=== PATIENT | male | born 1965 | race Caucasian/White ===

== ENCOUNTER 2017-02-18 07:01 | Day surgery (SDC) | payer MEDICAID, OTHER ==
[2017-02-17 08:55] VITALS: BMI 31.0
[~2017-02-18 07:01] MED LIST: LACTATED RINGERS 1,000 ML IV SCH
[2017-02-18 07:15] VITALS: TEMP 98
[2017-02-18] MEDS ORDERED: LACTATED RINGERS 1,000 ML IV ONE (07:19)
[2017-02-18] MEDS ORDERED: PROPOFOL 10 MG/ML 20 ML VIAL IV ONE (07:35)
--- NOTE | 2017-02-18 07:53 | P.OP ---
Date of Procedure: 02/18/17 Preoperative Diagnosis: Dysphagia Postoperative Diagnosis: Reflux esophagitis with hill grade 2 hiatal hernia Gastritis Duodenitis Procedure(s) Performed: EGD with biospy Anesthesia: VANCE Surgeon: Jenny Paul Pathology: other Condition: stable Disposition: PACU Operative Findings: REfl;ux esophagitis with barretts? Hill damien 2 hiatal hernia GE junciton at 40 cm Gastritis Duodenitis Description of Procedure: 1. ESOPHAGOGASTRODUODENOSCOPY 2. BIOPSY USING COLD BIOPSY FORCEPS I A timeout was performed to verify the correct patient and correct procedure. Patient was on continuous vitals and pulse ox monitoring throughout the procedure. She was placed in lateral decubitus position and a bite block was inserted. A well-lubricated endoscope was passed orally. The esophagus was intubated without difficulty. The EGD was passed beyond the pylorus into the first and second portion of the duodenum. No normality is noted in the Biopsies were taken from the [antrum] using cold biopsy forceps. The scope was retroflexed. [Small hiatal was noted which is Hill Damien II]. No mass, ulcer or bleeding noted within the gastric lumen. The GE junction is measured at [38 ] cm from the incisors . The endoscope was gradually withdrawn. Patient tolerated the procedure well and was taken to post anesthesia care unit in stable condition. FINAL DIAGNOSIS: 1. Hill Grade II Hiatal hernia 2. Gastro esophageal reflux disease with reflux esophagitis 3- Antral gastritis (biospied for H pylori 4- Duofentitis 5- Tertiary esopageal contractions.
[2017-02-18 08:09] VITALS: RESP 18
[2017-02-18 08:19] VITALS: BP 134/82; PULSE 84
== END 2017-02-18 08:40 | disposition home or self-care (01) ==
LOC: ORWHC2ENDO 07:01
PROVIDERS: ATTEND Surgery
DX: K21.0 Gastro-esophageal reflux disease with esophagitis (principal); K20.0 Eosinophilic esophagitis; K29.50 Unspecified chronic gastritis without bleeding; K22.8 Other specified diseases of esophagus; K44.9 Diaphragmatic hernia without obstruction or gangrene; K29.80 Duodenitis without bleeding; Z79.899 Other long term (current) drug therapy
CPT/HCPCS: 88305; 88342; 43239; J2704; 74220

== ENCOUNTER → 2017-02-18 | Outpatient (CLI) | payer MEDICAID ==
--- NOTE | 2017-02-18 11:47 | FL ---
Barium swallow HISTORY: Dysphagia Patient was given high density barium to drink. 8 seconds fluoroscopy time. 43 intraoperative C-arm i mages document the procedure The swallowing mechanism is normal. No extrinsic or intrinsic esophageal lesion. No obstruction to fl ow. There is no evidence of hiatal hernia or gastroesophageal reflux. IMPRESSION: No significant abnormalities evident
== END | disposition home or self-care (01) ==
LOC: RADFLWHC 10:56
PROVIDERS: ATTEND Surgery
DX: R13.10 Dysphagia, unspecified (principal)
CPT/HCPCS: 74220

== ENCOUNTER → 2017-03-24 | Day surgery (SDC) | payer MEDICAID ==
[2017-03-22 15:40] VITALS: BMI 30.1
[2017-03-24 12:43] VITALS: BP 135/84; PULSE 83; RESP 16; TEMP 97.7
--- NOTE | 2017-04-10 07:39 | PCN ---
DATE OF PROCEDURE: 03/24/2017 PROCEDURE PERFORMED: Esophageal manometry. PREOPERATIVE DIAGNOSES: Gastroesophageal reflux disease and dysphagia. DESCRIPTION OF PROCEDURE: After informed consent was obtained, the patient was brought in to the endoscopy unit. The procedure was performed by endoscopy nurse. The esophageal manometry catheter was passed in the external nostril, was gently advanced into the stomach. Initially gastric baseline was achieved and the study was performed using stationery pull thru technique. The following are the studies results: 1. Lower esophageal sphincter data: Proximal location 41 cm, distal location 44 cm, total lower esophageal sphincter length is 3 cm. Mean lower esophageal sphincter pressures are 31 mmHg. 2. Esophageal body: Peristaltic contractions 100%, mean amplitude of the contractions, 78 mmHg. No evidence of simultaneous, spontaneous or retrograde contractions. 3. Upper esophageal sphincter: Normal. 4. Complete bolus transit time with viscous solution was 100%. INTERPRETATION: The above esophageal manometry study shows normal lower esophageal sphincter pressures with good relaxation with wet swallows. The motility pattern involving the esophageal body is within normal limits. There is no evidence of esophageal dysmotility. MTDD
--- NOTE | 2017-04-10 07:53 | PCN ---
DATE OF PROCEDURE: 03/24/2017 Requesting physician: Dr. Ranjit Whitaker. PROCEDURE PERFORMED: A 24-hour esophageal pH study. PROCEDURE: After informed consent was obtained from the patient, she was brought into the endoscopy. The pH probe was passed from the ( ) muscle after adequate calibration and was passed into the distal esophagus and the study was performed for total of 24 hours and 3 minutes. Following are the study results: 1. Acid exposure: Upright refluxes 2.5%, recumbent refluxes 3.1%, total refluxes 2.8% (normal less than 4.5%). ( ) score is 11.7 (normal is less than 14.7). 2. Reflux episode activity: Acid reflux 48, nonacid reflux 14. Total reflux episode 62 (normal less than 85). 3. Symptom index is 0%. INTERPRETATION: The above esophageal pH study does not show any evidence of significant pathological acid reflux both in the proximal or in the distal esophagus. MTDD
== END ==
LOC: ORWHC2ENDO 12:13
PROVIDERS: ATTEND Internal Medicine Gastroenterology
DX: K21.9 Gastro-esophageal reflux disease without esophagitis (principal); R13.10 Dysphagia, unspecified
CPT/HCPCS: 91010; 91038

== ENCOUNTER → 2017-10-13 | Outpatient (CLI) | payer MEDICAID ==
--- NOTE | 2017-10-13 12:15 | FL ---
EXAMINATION TYPE: FL barium swallow w video DATE OF EXAM: 10/13/2017 COMPARISON: Esophagram 02/18/2017 HISTORY: Food sticking upper esophagus TECHNIQUE: Fluoroscopy. FINDINGS: Fluoroscopic guidance was provided for the procedure performed in conjunction with the [facility] pathology department. Please see complete report forthcoming from the Speech Pathology departmen t. Various consistencies from thin liquid to solids were administered. Fluoroscopy time 1 minute 30 seconds Number of images: 1 No aspiration or penetration was evident. No significant pooling was observed in the vallecula. There was normal propulsion of the bolus through the proximal cricopharyngeus muscle. There is howeve r noted to be buildup of debris within the mid to distal esophagus. With dry swallowing this does not clear. This does partially empty with thin liquid swallowing. IMPRESSION: 1. Build up of debris within the esophagus during the solids portion of the study. This partially home ars with thin liquids. Consider presbyesophagus within the differential. 2. No aspiration or penetration evident during this exam.
== END | disposition home or self-care (01) ==
LOC: RADFLMAIN 10:58
PROVIDERS: ATTEND Otolaryngology
DX: R93.3 Abnormal findings on diagnostic imaging of other parts of digestive tract (principal); R13.10 Dysphagia, unspecified
CPT/HCPCS: 74230

== ENCOUNTER 2018-01-25 11:54 | Day surgery (SDC) | payer MEDICAID ==
[2018-01-24 10:00] VITALS: BMI 30.1
[~2018-01-25 11:54] MED LIST changes: -LACTATED RINGERS 1,000 ML IV SCH; +LIDOCAINE 1% 20 ML VIAL (10MG/ML) FOR IV START INTRADERMA PRN; +MIDAZOLAM 2 MG/2 ML VIAL IV PRN; +fentaNYL (PF) 50 MCG/ML 2 ML AMP IV PRN
[2018-01-25] MEDS: LACTATED RINGERS 1,000 ML IV SCH ×2 (13:06→14:19)
[2018-01-25 13:10] VITALS: RESP 16; TEMP 98.5
[2018-01-25] MEDS ORDERED: PROPOFOL 10 MG/ML 20 ML VIAL IV ONE (14:19)
--- NOTE | 2018-01-25 14:55 | P.PCN ---
Date of Procedure: 01/25/18 Procedure(s) Performed: Procedure: Esophagogastroduodenoscopy and biopsy. Preoperative diagnosis: Dysphagia and abnormal esophagogram. Postoperative diagnosis: 1. Small sliding hiatal hernia with low-grade distal esophagitis. 2. Mild gastritis and duodenitis. 3. Multiple biopsies obtained from the antrum and esophagus. Preparation and sedation: Was provided by anesthesia. Brief clinical history: The patient is a 52-year-old male who was been troubled with difficulty swallowing for the last 2 years or so. He had evaluation in the past including an upper endoscopy that showed some degree of esophagitis and a barium swallow which was normal in February of last year as well as a motility study which did not reveal any significant abnormalities. The patient has been having persistent symptoms with episodes of obstructive dysphagia couple times a week, at times requiring him making the effort of bringing the food back up. A barium study recently performed showed dysmotility raising the possibility of presbyesophagus. The patient has been on acid suppressive therapy since his upper endoscopy with biopsies last February because of findings of reflux esophagitis. I scheduled this evaluation to reassess for possible eosinophilic esophagitis, esophageal stricture or other pathology. Procedure: With the patient on his left lateral decubitus position and after informed consent and adequate sedation, I passed the Olympus-GIF 160 video upper endoscope through the cricopharyngeus down the esophagus. GE junction was around 41 cm from the incisors and there was a small sliding hiatal hernia. The esophagus showed mild corrugations and there was a short erosion distally terminating at the level of the GE junction but no ulcers or obvious strictures. The endoscope was then passed into the stomach which was insufflated with air and inspected in detail including the retroflex view in the cardia. There was some mottling and erythema in the antrum but no ulcers or erosions. Pyloric channel did not show any ulcers. Duodenal bulb showed patches of erythema and couple healing erosions but no ulcers or bleeding. Post bulbar area and descending duodenum appeared normal. I obtained biopsies from the antrum and esophagus then the endoscope was withdrawn. The patient tolerated the procedure well. Plan: The patient was reassured. Will await biopsy results. I will see him in follow-up in the office and make additional recommendations. I will keep you updated on his progress.
[2018-01-25 14:59] VITALS: BP 126/85; PULSE 76
== END 2018-01-25 15:35 | disposition home or self-care (01) ==
LOC: ORWHC2ENDO 11:54
DX: K20.0 Eosinophilic esophagitis (principal); K29.50 Unspecified chronic gastritis without bleeding; K44.9 Diaphragmatic hernia without obstruction or gangrene; K29.80 Duodenitis without bleeding; Z87.891 Personal history of nicotine dependence; K21.9 Gastro-esophageal reflux disease without esophagitis; K04.7 Periapical abscess without sinus; Z79.2 Long term (current) use of antibiotics; Z79.1 Long term (current) use of non-steroidal anti-inflammatories (NSAID); Z79.899 Other long term (current) drug therapy
CPT/HCPCS: 88305; 43239; J2704

== ENCOUNTER → 2018-06-27 | Outpatient (CLI) | payer MEDICAID ==
--- NOTE | 2018-06-27 14:15 | EST ---
EXERCISE STRESS AGE: 52 SEX: M HT: 5'10" WT: 208 PROTOCOL: Andriy Stress Test STAGE: I DURATION OF EXERCISE: 5:15 HEART RATE REST: 90 BLOOD PRESSURE REST: 153/86 MAXIMUM HEART RATE ACHIEVED: 143 MAXIMUM BLOOD PRESSURE: 211/74 85% MPHR: 141 100% MPHR: 166 METS: 7.1 INDICATIONS: Family history. CLINICAL INFORMATION: Patient was exercised for a total period of 5 minutes, peak heart rate of 143 was achieved. Maximum blood pressure of 211/74 mmHg was noted. Resting EKG shows normal sinus rhythm with normal DC interval and QRS duration and normal ST-T waves. No ST- segment depression suggestive of ischemia is noted. Patient did not complain of any chest pain during the test. FINAL IMPRESSION: 1. This exercise test is not suggestive of ischemia. 2. Patient's exercise tolerance is normal. 3. No dysrhythmias are noted. MMODL / IJN: [id number] /
== END | disposition home or self-care (01) ==
LOC: RADNMMAIN 10:32
PROVIDERS: ATTEND Family Medicine
DX: Z13.6 Encounter for screening for cardiovascular disorders (principal)
CPT/HCPCS: 93017

== ENCOUNTER → 2019-04-11 | Outpatient (CLI) | payer MEDICAID ==
[2019-04-12 00:16] LABS: Peanut IgE <0.10 kU/L; Soybean IgE <0.10 kU/L
[2019-04-12 00:17] LABS: Walnut IgE (Food) <0.10 kU/L
[2019-04-12 13:53] LABS: Lettuce IgE Class CLASS 0
[2019-04-12 13:54] LABS: Pork IgE Class CLASS 0
[2019-04-12 13:55] LABS: Beef IgE <0.35 kU/L (<0.35); Beef IgE Class CLASS 0
[2019-04-12 13:56] LABS: Onion IgE <0.35 kU/L (<0.35); Onion IgE Class CLASS 0
[2019-04-12 13:57] LABS: Chicken IgE Class CLASS 0; Gluten IgE Class CLASS II; Latex IgE Class CLASS 0
[2019-04-12 13:58] LABS: Avocado Class CLASS 0; Banana IgE Class CLASS 0; Cow's Milk IgE Class CLASS 0; Egg White IgE <0.35 kU/L (<0.35); Hazelnut IgE <0.35 kU/L (<0.35); Hazelnut IgE Class CLASS 0; Kiwi IgE <0.35 kU/L (<0.35); Peanut IgE <0.35 kU/L (<0.35); Potato IgE <0.35 kU/L (<0.35); Potato IgE Class CLASS 0; Soybean IgE <0.35 kU/L (<0.35)
== END | disposition home or self-care (01) ==
LOC: LABWHC1 06:36
PROVIDERS: ATTEND Otolaryngology
DX: J30.89 Other allergic rhinitis (principal)
CPT/HCPCS: 36415; 80061; 86003

== ENCOUNTER 2019-11-01 14:05 | Emergency (ER) | payer MEDICAID ==
[2019-11-01 14:21] VITALS: TEMP 97.6
[2019-11-01] MEDS ORDERED: SODIUM CHLORIDE 0.9% 1,000 ML IV STA (14:33)
[2019-11-01] MEDS ORDERED: MORPHINE SULFATE 4 MG/ML SYRINGE IV STA (14:33)
[2019-11-01] MEDS ORDERED: ONDANSETRON 4 MG/2 ML VIAL IVP STA (14:33)
[2019-11-01 15:08] LABS: Basophils # (A) 0.2 k/uL (0-0.2); Basophils % (A) 2 %; Eosinophils # (A) 0.1 k/uL (0-0.7); Eosinophils % (A) 1 %; HCT 46.6 % (39.0-53.0); Lymphocytes # (A) 0.7 k/uL (1.0-4.8); Lymphocytes % (A) 8 %; MCH 30.9 pg (25.0-35.0); MCHC 34.5 g/dL (31.0-37.0); MCV 89.7 fL (80.0-100.0); Mean Platelet Volume 7.5; Monocytes # (A) 0.8 k/uL (0-1.0); Monocytes % (A) 8 %; Neutrophils # (A) 7.7 k/uL (1.3-7.7); Neutrophils % (A) 80 %; Platelet Count 326 k/uL (150-450); RBC 5.19 m/uL (4.30-5.90); RDW 12.3 % (11.5-15.5); WBC 9.7 k/uL (3.8-10.6)
--- NOTE | 2019-11-01 15:19 | XR ---
EXAMINATION TYPE: XR KUB DATE OF EXAM: 11/01/2019 3:12 PM CLINICAL HISTORY: Generalized abdominal pain for 2 days. TECHNIQUE: Two Upright KUB images of the abdomen are obtained. COMPARISON: None. FINDINGS: Small mottled gas with air-fluid level in the stomach epigastric region. Scattered gas is s een in non-distended small bowel loops. Scattered air fluid levels is nonspecific finding. Gas and fe deisy material is seen in non-distended colon. Scattered air fluid levels right and transverse colon is also a nonspecific finding. Gas likely present in rectum overlying pubic symphysis. There is no visc eromegaly, pneumoperitoneum, or abnormal calcification appreciated. The lung bases are clear and the osseous structures are intact. IMPRESSION: Overall nonspecific but still favor nonobstructive bowel gas pattern. Enterocolitis should be conside red given presence of scattered air-fluid levels without suspicious bowel dilatation.
[2019-11-01 15:47] LABS: ALT 34 U/L (4-49); AST 34 U/L (17-59); African American GFR (CKD) >90 (>60 ml/min/1.73 sqM); Albumin 3.7 g/dL (3.5-5.0); Alkaline Phosphatase 72 U/L (38-126); Blood Urea Nitrogen 35 mg/dL (9-20); Calcium 8.3 mg/dL (8.4-10.2); Carbon Dioxide 25 mmol/L (22-30); Chloride 103 mmol/L (98-107); Glucose 140 mg/dL (74-99); Non-African American GFR(CKD) 88 (>60 ml/min/1.73 sqM); Total Protein 6.3 g/dL (6.3-8.2)
[2019-11-01 15:59] LABS: Anion Gap 9 mmol/L; Potassium 4.3 mmol/L (3.5-5.1); Sodium 137 mmol/L (137-145)
--- NOTE | 2019-11-01 17:21 | ED ---
General Adult HPI - General Chief complaint: Abdominal Pain Stated complaint: stomach pain Time Seen by Provider: 11/01/19 14:26 Source: patient, RN notes reviewed, old records reviewed Mode of arrival: ambulatory Limitations: no limitations - History of Present Illness Initial comments: 54 yo female presenting for evaluation of abdominal pain and nausea vomiting diarrhea. Patient is otherwise healthy with no chronic medical conditions. His been sick for approximately 36 hours. Initially began as vomiting, greater than 10 episodes. Nonbloody nonbilious. It has progressed to diarrhea over the past 6 hours. No blood in the diarrhea. He has a periumbilical crampy abdominal pain which is been present throughout. No fever or chills. No upper respiratory symptoms. No chest pain or dyspnea. His daughter had similar gastrointestinal illness 4 days prior which has resolved. - Related Data Home Medications Medication Instructions Recorded Confirmed Omeprazole [PriLOSEC] 40 mg PO DAILY 11/01/19 11/01/19 Previous Rx's Medication Instructions Recorded Acetaminophen-Codeine 300-30mg 1 tab PO Q6H PRN 3 Days #12 tablet 11/01/19 [Tylenol w/codeine #3] Allergies Allergy/AdvReac Type Severity Reaction Status Date / Time No Known Allergies Allergy Verified 11/01/19 14:45 Review of Systems ROS Statement: Those systems with pertinent positive or pertinent negative responses have been documented in the HPI. ROS Other: All systems not noted in ROS Statement are negative. Past Medical History Past Medical History: GERD/Reflux Additional Past Medical History / Comment(s): FEELS LIKE FOOD GETS STUCK IN THROAT History of Any Multi-Drug Resistant Organisms: None Reported Past Surgical History: Adenoidectomy, Tonsillectomy Additional Past Surgical History / Comment(s): EGD 02/17/17 Past Anesthesia/Blood Transfusion Reactions: No Reported Reaction Past Psychological History: No Psychological Hx Reported Smoking Status: Former smoker Past Alcohol Use History: None Reported Past Drug Use History: None Reported - Past Family History Father Family Medical History: Cancer Mother Family Medical History: Cancer Sister(s) Family Medical History: Cancer General Exam Limitations: no limitations General appearance: alert, in no apparent distress Head exam: Present: atraumatic, normocephalic Eye exam: Present: normal appearance, PERRL ENT exam: Present: mucous membranes dry Neck exam: Present: normal inspection. Absent: tenderness, meningismus Respiratory exam: Present: normal lung sounds bilaterally. Absent: respiratory distress, wheezes Cardiovascular Exam: Present: normal rhythm, tachycardia GI/Abdominal exam: Present: soft, normal bowel sounds. Absent: distended, tenderness, guarding, rebound Extremities exam: Present: normal inspection, normal capillary refill. Absent: pedal edema, calf tenderness Neurological exam: Present: alert, oriented X3, CN II-XII intact. Absent: motor sensory deficit Psychiatric exam: Present: normal affect, normal mood Skin exam: Present: warm, dry, intact. Absent: cyanosis, diaphoretic Course Vital Signs 11/01/19 14:19 Temperature 97.6 F Pulse Rate 115 H Respiratory 18 Rate Blood Pressure 123/83 O2 Sat by Pulse 96 Oximetry - Reevaluation(s) Reevaluation #1: 11/01/19 18:11 Patient reevaluated several times, resting comfortably, no further nausea, vomiting or diarrhea. Abdomen reassessed, soft nontender nondistended. Stable vitals. Medical Decision Making - Medical Decision Making 54-year-old male presenting with crampy abdominal pain, nausea vomiting and diarrhea. Similar symptoms in his daughter several days prior. Patient's well- appearing, mildly tachycardic on exam. Abdomen is soft no tenderness to palpation. He has a normal CBC, normal electrolytes with a slightly elevated BUN to creatinine ratio suggestive of some dehydration. X-rays performed which is negative for obstruction or intraperitoneal free air, does show air-fluid levels consistent with enteritis. He is observed in the emergency department for several hours, no further vomiting, no diarrhea. Pain control. Vital stable. Eager for discharge. He will maintain oral hydration at home, he has had a by mouth challenge in the emergency department without vomiting. - Lab Data Result diagrams: 11/01/19 14:34 11/01/19 14:34 Lab Results 11/01/19 11/01/19 11/01/19 Range/Units 14:34 14:34 14:34 WBC 9.7 (3.8-10.6) k/uL RBC 5.19 (4.30-5.90) m/uL Hgb 16.0 (13.0-17.5) gm/dL Hct 46.6 (39.0-53.0) % MCV 89.7 (80.0-100.0) fL MCH 30.9 (25.0-35.0) pg MCHC 34.5 (31.0-37.0) g/dL RDW 12.3 (11.5-15.5) % Plt Count 326 (150-450) k/uL Neutrophils % 80 % Lymphocytes % 8 % Monocytes % 8 % Eosinophils % 1 % Basophils % 2 % Neutrophils # 7.7 (1.3-7.7) k/uL Lymphocytes # 0.7 L (1.0-4.8) k/uL Monocytes # 0.8 (0-1.0) k/uL Eosinophils # 0.1 (0-0.7) k/uL Basophils # 0.2 (0-0.2) k/uL Sodium 137 (137-145) mmol/L Potassium 4.3 (3.5-5.1) mmol/L Chloride 103 (98-107) mmol/L Carbon Dioxide 25 (22-30) mmol/L Anion Gap 9 mmol/L BUN 35 H (9-20) mg/dL Creatinine 0.97 (0.66-1.25) mg/dL Est GFR (CKD-EPI)AfAm >90 (>60 ml/min/1.73 sqM) Est GFR (CKD-EPI)NonAf 88 (>60 ml/min/1.73 sqM) Glucose 140 H (74-99) mg/dL Plasma Lactic Acid Aristides 1.1 (0.7-2.0) mmol/L Calcium 8.3 L (8.4-10.2) mg/dL Total Bilirubin 1.0 (0.2-1.3) mg/dL AST 34 (17-59) U/L ALT 34 (4-49) U/L Alkaline Phosphatase 72 (38-126) U/L Total Protein 6.3 (6.3-8.2) g/dL Albumin 3.7 (3.5-5.0) g/dL Lipase 72 (23-300) U/L Disposition Clinical Impression: Abdominal pain, Nausea vomiting and diarrhea Disposition: HOME SELF-CARE Condition: Good Instructions (If sedation given, give patient instructions): Abdominal Pain (ED), Acute Nausea and Vomiting (ED), Acute Diarrhea (ED) Prescriptions: Acetaminophen-Codeine 300-30mg [Tylenol w/codeine #3] 1 tab PO Q6H PRN 3 Days #12 tablet PRN Reason: Pain Is patient prescribed a controlled substance at d/c from ED?: No Referrals: Thad Whitaker MD [Primary Care Provider] - 1-2 days Time of Disposition: 18:15
[2019-11-01 18:29] LABS: Appearance,Urine Clear (Clear); Bilirubin,Urine Negative (Negative); Blood,Urine Negative (Negative); Color,Urine Yellow; Glucose,Urine (UA) Negative (Negative); Ketones,Urine 1+ (Negative); Leukocyte Esterase,Urine Negative (Negative); Nitrite,Urine Negative (Negative); PH, Urine 5.5 (5.0-8.0); Protein,Urine Negative (Negative); Specific Gravity,Urine 1.027 (1.001-1.035)
[2019-11-01 18:53] VITALS: BP 139/78; PULSE 76; RESP 16
== END 2019-11-01 18:48 | disposition home or self-care (01) ==
LOC: EC 14:05
DX: R10.9 Unspecified abdominal pain (principal); R11.2 Nausea with vomiting, unspecified; R19.7 Diarrhea, unspecified; R00.0 Tachycardia, unspecified; K21.9 Gastro-esophageal reflux disease without esophagitis; Z79.899 Other long term (current) drug therapy; Z87.891 Personal history of nicotine dependence
CPT/HCPCS: 36415; 80053; 83605; 83690; 85025; 81003; 74018; 99284; 96374; 96375; 96361 ×4; J2270; J2405

== ENCOUNTER → 2020-12-09 | Outpatient (CLI) | payer OTHER ==
--- NOTE | 2020-12-09 07:46 | MR ---
EXAMINATION TYPE: MR shoulder RT wo con DATE OF EXAM: 12/09/2020 COMPARISON: None HISTORY: Rt shoulder pain TECHNIQUE: Multiplanar, multisequence imaging of the right shoulder is performed without contrast. FINDINGS: Rotator Cuff: Postsurgical changes from prior rotator cuff tear are evident. The supraspinatus muscle appears somewhat atrophic. Significant fatty gestation is not evident. Within the distal portion of the supraspinatus tendon there is signal abnormality crossing the tendon compatible with a perforatio n. Series 401 image 16. Additional area of signal abnormality within the supraspinatus tendon is belo w the acromion tip, series 601 image 18. Minimal fluid is in the subacromial bursa. Findings are comp atible with small perforations. Acromioclavicular Joint: Hypertrophy. There is some downward spurring which can contribute to impinge ment syndrome. Glenohumeral Joint: Humeral head articular glenoid. Mild narrowing of the articular cartilage may be present. Labrum: The labrum appears grossly intact given limitation of non-arthrogram study. Biceps Tendon: The long head of biceps is in normal location within bicipital groove. Bone marrow signal: No focal abnormal marrow signal is appreciated. Other: No additional significant abnormality is appreciated. IMPRESSION: 1. Suggestion of a couple of small perforations within the supraspinatus tendon minimal fluid in suba cromial bursa. No complete tear with retraction is evident. 2. Mild osteoarthritic degenerative change right shoulder
== END ==
LOC: RADMRIMAIN 06:05
PROVIDERS: ATTEND Orthopaedic Surgery
DX: M25.511 Pain in right shoulder (principal)

== ENCOUNTER 2021-01-03 03:19 | Observation (INO) | payer MEDICAID ==
[2021-01-03] MEDS ORDERED: HYDROmorphone 0.5 MG/0.5 ML SYRINGE IVP STA (07:18)
--- NOTE | 2021-01-03 07:35 | CT ---
EXAMINATION TYPE: CT angio chest DATE OF EXAM: 01/03/2021 7:21 AM COMPARISON: None HISTORY: Chest pain CT DLP: 472.5 mGycm Automated exposure control for dose reduction was used. CONTRAST: CTA scan of the thorax is performed with IV Contrast, patient injected with 100 mL of Isovue 370, pul monary embolism protocol. . FINDINGS: LUNGS: Subsegmental changes are seen involving the posterior lung bases most typical of atelectasis n o pneumothorax or pleural effusion. Biapical pleural thickening. 6 mm subpleural nodule superior segm ent left upper lobe and 3 mm nodule superior segment subpleural right lower lobe. Additional subpleur al nodularity seen posteriorly within the superior segment left upper lobe. No evidence seen to sugge st failure. MEDIASTINUM: Artifact limits assessment proximally. No sizable central pulmonary embolus seen. Questi onable filling defect within the left upper lobe branch may be artifactual. Correlate clinically. Rem aining visualized structures enhance normally. Aorta of normal caliber. Heart size OTHER: Hypertrophic and degenerative change of the spine. IMPRESSION: 1. No central pulmonary embolus. There is a density seen with a left upper lobe pulmonary arterial br anch which could be artifactual. Small pulmonary embolism difficult to exclude correlate clinically a nd with VQ scan as clinically warranted. 2. Multiple subpleural nodules could be postinflammatory. Six-month follow-up CT chest recommended.
[2021-01-03] MEDS ORDERED: NITROGLYCERIN SL TABS 0.4 MG TAB SUBLINGUAL PRN (08:10)
[2021-01-03] MEDS ORDERED: SODIUM CHLORIDE 0.9% 500 ML 500 ML IV ONE (08:12)
--- NOTE | 2021-01-03 08:13 | ED ---
Chest Pain HPI - History of Present Illness Initial Comments: 55-year-old male presenting to the emergency department today for chief complaint of epigastric pain ongoing since 3:30 this morning. Patient presents emergency department and was initially evaluated by my colleague Thuy Clark, she completed a majority of the workup for chest pain. Patient had normal troponins. Despite nitroglycerin x 3 and morphine 8mg pt was in significant pain. Thus CTA ordered. No dissection oand there is an artifact in the upper left lobe. Patient has no pleuritic chest pain, nor risk factors for PE. He is tachycardic but this is felt to be likely secondary to pain. Patient has reproducible tenderness with abdominal guarding upon palpation of the epigastric region of the abdomen. I suspect a more abdominal source. Will trend lipase, troponins. Patient will be hydrated. Patient recently started on diabetic medications of farxiga and rybelius. Pt case discussed with Dr. Godinez by Thuy Clark prior to shift change. Patient case was discussed with Dr. Hightower who accepted admission. - Related Data Home Medications Medication Instructions Recorded Confirmed Atorvastatin [Lipitor] 20 mg PO AC-SUPPER 01/03/21 01/03/21 Dapagliflozin Propanediol [Farxiga] 10 mg PO AC-SUPPER 01/03/21 01/03/21 Semaglutide [Rybelsus] 14 mg PO QAM 01/03/21 01/03/21 lisinopriL [Zestril] 10 mg PO AC-SUPPER 01/03/21 01/03/21 Allergies Allergy/AdvReac Type Severity Reaction Status Date / Time No Known Allergies Allergy Verified 01/03/21 08:14 Review of Systems ROS Statement: Those systems with pertinent positive or pertinent negative responses have been documented in the HPI. ROS Other: All systems not noted in ROS Statement are negative. Past Medical History Past Medical History: GERD/Reflux Additional Past Medical History / Comment(s): FEELS LIKE FOOD GETS STUCK IN THROAT History of Any Multi-Drug Resistant Organisms: None Reported Past Surgical History: Adenoidectomy, Tonsillectomy Additional Past Surgical History / Comment(s): EGD 02/17/17 Past Anesthesia/Blood Transfusion Reactions: No Reported Reaction Past Psychological History: No Psychological Hx Reported Past Alcohol Use History: None Reported Past Drug Use History: None Reported - Past Family History Father Family Medical History: Cancer Mother Family Medical History: Cancer Sister(s) Family Medical History: Cancer General Exam - General Exam Comments Initial Comments: General: The patient is awake and alert, in no distress Eye: +3 mm pupils are equal, round and reactive to light, extra-ocular movements are intact. No nystagmus. There is normal conjunctiva bilaterally. No signs of icterus. Ears, nose, mouth and throat: There are moist mucous membranes and no oral lesions. Neck: The neck is supple, there is no tenderness or JVD. Cardiovascular: There is a regular rate and rhythm. No murmur, rub or gallop is appreciated. Respiratory: Lungs are clear to auscultation, respirations are non-labored, breath sounds are equal. No wheezes, stridor, rales, or rhonchi. Gastrointestinal: Soft, non-distended, very tender epigastric region of abdomen, abdomen without masses or organomegaly noted. There is no rebound. Guarding present Musculoskeletal: Normal ROM, no tenderness. Strength 5/5. Sensation intact. radial and Dp pulses equal bilaterally 2+. Neurological: A&O x 3. CN II-XII intact grossly, There are no obvious motor or sensory deficits. Coordination appears grossly intact. Speech is normal. Skin: Skin is warm and dry and no rashes or lesions are noted. Psychiatric: Cooperative, appropriate mood & affect, normal judgment. Disposition Clinical Impression: Epigastric pain Disposition: ADMITTED IP TO THIS [facility] Condition: Stable Is patient prescribed a controlled substance at d/c from ED?: No Referrals: Thad Whitaker MD [Primary Care Provider] - 1-2 days Time of Disposition: 08:09 Decision to Admit Reason: Admit from EC Decision Date: 01/03/21 Decision Time: 08:09
[2021-01-03] MEDS ORDERED: HYDROmorphone 1 MG/ML 1 ML SYRINGE IVP PRN (08:16)
[2021-01-03] MEDS ORDERED: ACETAMINOPHEN TAB 325 MG TAB PO PRN (08:19)
[2021-01-03] MEDS ORDERED: ONDANSETRON 4 MG/2 ML VIAL IVP PRN (08:19)
--- NOTE | 2021-01-03 08:27 | P.HPIM ---
History of Present Illness H&P Date: 01/03/21 Chief Complaint: Epigastric pain This is a 55-year-old male with past medical history noted below significant for type 2 diabetes who presented to the emergency room with epigastric/chest pain. Patient said that his pain started all of a sudden around 3 in the morning and w shayy him up from his sleep. Patient described the pain as sharp and mostly in the lower chest and epigastric area. He rates his pain as 10 out of 10 in severity. No radiation. This was associated with diaphoresis and mild nausea but no vomiting. Patient was concern that he may be having a heart attack and came into the emergency room for further evaluation. 12-lead EKG showed no acute ischemic changes. Initial troponin were normal. Patient's electrolytes and CBC were within normal range. Lipase is only slightly elevated. Patient had the CT angiogram of the chest in the ER showed no evidence of central PE with questionable artifact in the left upper lobe. Patient does not have any risk factors for PE. His Wells score is 0. He was seen and evaluated by me in the ER. Patient denies alcohol use. Only occasional NSAIDS use. He is a nonsmoker. He denies any cardiac history. He is fairly active usually. He had a stress test in 2018 that was normal. Review of Systems Review of system: 14 points review of systems were obtained and were negative except to what were mentioned in the HPI. Past Medical History Past Medical History: GERD/Reflux Additional Past Medical History / Comment(s): FEELS LIKE FOOD GETS STUCK IN THROAT History of Any Multi-Drug Resistant Organisms: None Reported Past Surgical History: Adenoidectomy, Tonsillectomy Additional Past Surgical History / Comment(s): EGD 02/17/17 Past Anesthesia/Blood Transfusion Reactions: No Reported Reaction Past Psychological History: No Psychological Hx Reported Past Alcohol Use History: None Reported Past Drug Use History: None Reported - Past Family History Father Family Medical History: Cancer Mother Family Medical History: Cancer Sister(s) Family Medical History: Cancer Medications and Allergies Home Medications Medication Instructions Recorded Confirmed Type Atorvastatin [Lipitor] 20 mg PO AC-SUPPER 01/03/21 01/03/21 History Dapagliflozin Propanediol [Farxiga] 10 mg PO AC-SUPPER 01/03/21 01/03/21 History Semaglutide [Rybelsus] 14 mg PO QAM 01/03/21 01/03/21 History lisinopriL [Zestril] 10 mg PO AC-SUPPER 01/03/21 01/03/21 History Allergies Allergy/AdvReac Type Severity Reaction Status Date / Time No Known Allergies Allergy Verified 01/03/21 08:14 Physical Exam General: The patient is awake and alert, in no distress Eye: there is normal conjunctiva bilaterally. Neck: The neck is supple, there is no JVD. Cardiovascular: Normal S1-S2, no S3-S4, no murmurs. Respiratory: Lungs clear to auscultation bilaterally Gastrointestinal: Abdomen is soft, there is mild tenderness to palpation in the epigastric area Musculoskeletal: There is no pedal edema. Neurological:. Speech is normal. Skin: Skin is warm and dry Assessment and Plan Assessment: 1. Lower chest/epigastric pain, exact etiology unclear. ACS ruled out. Twelve-lead EKG showed no acute ischemic changes. Initial troponin is normal. We will continue telemetry monitoring. Trend troponin. Cardiology consulted for further evaluation. May consider cardiac stress test. Included in the differential diagnosis possibility of underlying pancreatitis secondary to Rybelsus use. That is only slightly elevated. Repeat lipase ordered. If symp toms persist I would consider computed tomography scan of the abdomen for further evaluation. 2. Type 2 diabetes: Hold oral agents and continue sliding scale insulin 3. Chronic medical problems: Essential hypertension, hyperlipidemia. Continue home medications 4. DVT prophylaxis with subcu heparin 5. Patient is full code Today, I reviewed his medication list and lab work results. Patient was started on full dose aspirin in the ER. We'll continue close observation. Awaiting cardiology evaluation.
[2021-01-03] MEDS: SODIUM CHLORIDE 0.9% 1,000 ML IV SCH ×2 (08:36→20:09)
[2021-01-03 08:41] LABS: ALT 26 U/L (4-49); AST 33 U/L (17-59); African American GFR (CKD) >90 (>60 ml/min/1.73 sqM); Albumin 3.7 g/dL (3.5-5.0); Alkaline Phosphatase 66 U/L (38-126); Amylase 38 U/L (30-110); Anion Gap 9 mmol/L; Blood Urea Nitrogen 23 mg/dL (9-20); Carbon Dioxide 21 mmol/L (22-30); Chloride 108 mmol/L (98-107); Glucose 94 mg/dL (74-99); Lipase 262 U/L (23-300); Magnesium 2.1 mg/dL (1.6-2.3); Non-African American GFR(CKD) >90 (>60 ml/min/1.73 sqM); Potassium 4.1 mmol/L (3.5-5.1); Sodium 138 mmol/L (137-145); Total Bilirubin 0.8 mg/dL (0.2-1.3)
[2021-01-03 08:45] LABS: Glucose,Whole Blood 88 mg/dL (75-99)
[2021-01-03 08:49] LABS: INR 0.9 (<1.2); Partial Thromboplastin Time 24.1 sec (22.0-30.0); Prothrombin Time 10.2 sec (9.0-12.0)
[2021-01-03 08:52] LABS: Basophils % (A) 1 %; Eosinophils # (A) 0.2 k/uL (0-0.7); Eosinophils % (A) 3 %; HCT 41.2 % (39.0-53.0); HGB 13.9 gm/dL (13.0-17.5); Lymphocytes # (A) 1.4 k/uL (1.0-4.8); Lymphocytes % (A) 26 %; MCH 30.7 pg (25.0-35.0); MCHC 33.7 g/dL (31.0-37.0); MCV 91.1 fL (80.0-100.0); Mean Platelet Volume 7.5; Monocytes # (A) 0.5 k/uL (0-1.0); Monocytes % (A) 9 %; Neutrophils # (A) 3.1 k/uL (1.3-7.7); Neutrophils % (A) 60 %; Platelet Count 242 k/uL (150-450); RBC 4.52 m/uL (4.30-5.90); RDW 13.1 % (11.5-15.5); WBC 5.3 k/uL (3.8-10.6)
--- NOTE | 2021-01-03 09:09 | XR ---
EXAM: XR Chest, 2 Views CLINICAL HISTORY: chest pain near lower sternum. TECHNIQUE: Frontal and lateral views of the chest. COMPARISON: No relevant prior studies available. FINDINGS: Lungs: Unremarkable. No consolidation. Pleural space: Unremarkable. No pneumothorax. Heart: Unremarkable. No cardiomegaly. Mediastinum: Unremarkable. Bones/joints: Mild osteophytosis in the thoracic spine. IMPRESSION: No acute findings in the chest.
[2021-01-03] MEDS: HEPARIN SODIUM,PORCINE 5,000 UNIT/ML 1 ML VIAL SQ SCH ×2 (09:23→20:16)
[2021-01-03 13:48] LABS: Glucose,Whole Blood 76 mg/dL (75-99)
[2021-01-03] MEDS: INSULIN ASPART (NovoLOG) 100 UNIT/ML VIAL SQ SCH ×3 (13:49→20:15)
--- NOTE | 2021-01-03 14:22 | US ---
EXAMINATION TYPE: US abdomen complete DATE OF EXAM: 01/03/2021 COMPARISON: CT chest CLINICAL HISTORY: right sided abdominal pain . Epigastric pain today per patient EXAM MEASUREMENTS: Liver Length: 10.5 cm Gallbladder Wall: 0.2 cm CBD: 0.5 cm Spleen: 11.1 cm Right Kidney: 10.0 x 5.6 x 5.2 cm Left Kidney: 11.6 x 5.8 x 5.9 cm Pancreas: limitedly seen due to overlying bowel gas Liver: Echotexture is coarse Gallbladder: nonmobile shadowing stone seen in neck Evidence for sonographic Veloz's sign: no CBD: wnl Spleen: wnl Right Kidney: No hydronephrosis or masses seen; small calcification seen medially Left Kidney: No hydronephrosis or masses seen Upper IVC: wnl Abd Aorta: intimal wall thickening is noted mid and distally, but size is wnl. The liver is homogenous. The intrahepatic portion of the IVC and proximal abdominal aorta are within normal limits, there is no evident aneurysm. Common bile duct is unremarkable. The visualized porti ons of the pancreas are homogenous. The spleen is unremarkable. Kidneys are symmetric and free of h ydronephrosis. No renal lesions are seen. IMPRESSION: Cholelithiasis. Correlate for possible hepatic steatosis, hepatocellular disease
--- NOTE | 2021-01-03 16:08 | P.CRDCN ---
History of Present Illness History of present illness: HISTORY OF PRESENTING ILLNESS This is a pleasant 55-year-old male past medical history significant for hypertension and GERD. He does not follow with a spice fumigator. We have been asked to see in consultation for chest pain. Patient is seen and examined in the emergency Department, no acute distress.. Patient states he started having epigastric pain ongoing since 3:30 this morning. Pain is nonradiating and nonexertional. He didn't take anything for the pain. He can't describe what makes the pain worse or better. He did note some associated diaphoresis. Pain is located epigastric and also right upper quadrant pain is also increased with palpitation to the area. Patient denies any shortness of breath, palpitations, fatigue, weakness, lightheadedness, syncope. Patient denies any history of MN, diabetes, stroke, or hyperlipidemia. Patient denies smoking, alcohol use, illicit drug use. He does have a family history his father having an MN in his 70s. 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 Laboratory data reviewed, chest negative 3, d-dimer 0.36, sodium 138, potassium 4.1, creatinine 0.87, liver enzymes within normal limits, lipase 262. Vital signs blood pressure 114/79, heart rate 90s, maintaining oxygen saturation is on room air, temperature 98.2. Current home cardiac medications include lisinopril 10 mg nightly, atorvastatin 20 mg nightly. EKGs reveals sinus rhythm with no acute STT wave abnormalities. No prior EKG to compare. Chest xray no acute cardiopulmonary process. CT of the chest showed densities in the left upper lobe pulmonary artery branch which could be artifactual. Small pulmonary embolism difficult to exclude correlate with a beauty Q scan if warranted. Multiple subpleural nodules could be postinflammatory. REVIEW OF SYSTEMS At the time of my exam: CONSTITUTIONAL: Denies fever or chills. CARDIOVASCULAR: +epigastric pain,Denies shortness of breath, orthopnea, PND or palpitations. RESPIRATORY: Denies cough. GASTROINTESTINAL: + RUQ abdominal pain, diarrhea, constipation, nausea or vomiting. MUSCULOSKELETAL: Denies myalgias. NEUROLOGIC: Denies numbness, tingling, headacbe or weakness. ENDOCRINE: Denies fatigue, weight change, polydipsia or polyurina. GENITOURINARY: Denies burning, hematuria or urgency with micturation. HEMATOLOGIC: Denies history of anemia or bleeding. PHYSICAL EXAMINATION CONSTITUTIONAL: No apparent distress. HEENT: Head is normocephalic. Pupils are equal, round. Sclerae anicteric. Mucous membranes of the mouth are moist. No JVD. No carotid bruit. CHEST EXAMINATION: Lungs are clear to auscultation. No chest wall tenderness is noted on palpation or with deep breathing. HEART EXAMINATION: Regular rate and rhythm. S1, S2 heard. No murmurs, gallops or rub. ABDOMEN: Soft, nontender. Positive bowel sounds. EXTREMITIES: 2+ peripheral pulses, no lower extremity edema and no calf tenderness. SKIN: intact NEUROLOGIC EXAMINATION: Patient is awake, alert and oriented x3. ASSESSMENT -Chest pain, atypical- Acute coronary syndrome has been rules out. troponin negative x 3 EKG with no significant changes PLAN -Patient's pain does not appear to be cardiac related. Recommend US abdomen to evaluate patient's RUQ and epigastric pain. -Patient is stable, recommend resuming home cardiac medications -We will sign off at this time. Please reach out with any further questions or concerns Thank you kindly for this consultation. Nurse Practitioner note has been reviewed, I agree with a documented findings and plan of care. Patient was seen and examined. Past Medical History Past Medical History: GERD/Reflux Additional Past Medical History / Comment(s): FEELS LIKE FOOD GETS STUCK IN THROAT History of Any Multi-Drug Resistant Organisms: None Reported Past Surgical History: Adenoidectomy, Tonsillectomy Additional Past Surgical History / Comment(s): EGD 02/17/17 Past Anesthesia/Blood Transfusion Reactions: No Reported Reaction Past Psychological History: No Psychological Hx Reported Past Alcohol Use History: None Reported Past Drug Use History: None Reported - Past Family History Father Family Medical History: Cancer Mother Family Medical History: Cancer Sister(s) Family Medical History: Cancer Medications and Allergies Home Medications Medication Instructions Recorded Confirmed Type Atorvastatin [Lipitor] 20 mg PO AC-SUPPER 01/03/21 01/03/21 History Dapagliflozin Propanediol [Farxiga] 10 mg PO AC-SUPPER 01/03/21 01/03/21 History Semaglutide [Rybelsus] 14 mg PO QAM 01/03/21 01/03/21 History lisinopriL [Zestril] 10 mg PO AC-SUPPER 01/03/21 01/03/21 History Allergies Allergy/AdvReac Type Severity Reaction Status Date / Time No Known Allergies Allergy Verified 01/03/21 08:14 Physical Exam Vitals: Vital Signs Temp Pulse Resp BP Pulse Ox 01/03/21 15:49 98.2 F 90 18 114/79 98 01/03/21 11:30 96 18 124/80 98 Results 01/03/21 05:22 01/03/21 05:22 Cardiac Enzymes 01/03/21 01/03/21 01/03/21 Range/Units 05:22 05:22 09:29 AST 33 (17-59) U/L Troponin I <0.012 <0.012 (0.000-0.034) ng/mL 01/03/21 Range/Units 12:26 AST (17-59) U/L Troponin I <0.012 (0.000-0.034) ng/mL Coagulation 01/03/21 Range/Units 05:22 PT 10.2 (9.0-12.0) sec APTT 24.1 (22.0-30.0) sec CBC 01/03/21 Range/Units 05:22 WBC 5.3 (3.8-10.6) k/uL RBC 4.52 (4.30-5.90) m/uL Hgb 13.9 (13.0-17.5) gm/dL Hct 41.2 (39.0-53.0) % Plt Count 242 (150-450) k/uL Comprehensive Metabolic Panel 01/03/21 Range/Units 05:22 Sodium 138 (137-145) mmol/L Potassium 4.1 (3.5-5.1) mmol/L Chloride 108 H (98-107) mmol/L Carbon Dioxide 21 L (22-30) mmol/L BUN 23 H (9-20) mg/dL Creatinine 0.87 (0.66-1.25) mg/dL Glucose 94 (74-99) mg/dL Calcium 9.0 (8.4-10.2) mg/dL AST 33 (17-59) U/L ALT 26 (4-49) U/L Alkaline Phosphatase 66 (38-126) U/L Total Protein 6.0 L (6.3-8.2) g/dL Albumin 3.7 (3.5-5.0) g/dL Current Medications Generic Name Dose Route Start Last Admin Trade Name Freq PRN Reason Stop Dose Admin Acetaminophen 650 mg 01/03/21 08:19 Acetaminophen Tab 325 Mg Tab PO Q6HR PRN Fever and/ or Pain Aspirin 325 mg 01/04/21 09:00 Aspirin 325 Mg Tab PO DAILY [facility] Atorvastatin Calcium 20 mg 01/03/21 17:30 Atorvastatin 20 Mg Tab PO AC-SUPPER [facility] Heparin Sodium (Porcine) 5,000 unit 01/03/21 09:00 01/03/21 09:23 Heparin Sodium,Porcine 5,000 Unit/Ml 1 Ml Vial SQ 5,000 unit Q12HR MARICHUY Administration Hydromorphone HCl 1 mg 01/03/21 08:16 Hydromorphone 1 Mg/Ml 1 Ml Syringe IVP Q3H PRN Severe Pain Sodium Chloride 1,000 mls @ 100 mls/hr 01/03/21 08:15 01/03/21 08:36 Saline 0.9% IV 100 mls/hr .Q10H MARICHUY Administration Insulin Aspart 0 unit 01/03/21 12:30 01/03/21 13:49 Insulin Aspart (Novolog) 100 Unit/Ml Vial SQ Not Given ACHS [facility] Protocol Lisinopril 10 mg 01/03/21 17:30 Lisinopril 10 Mg Tab PO AC-SUPPER [facility] Nitroglycerin 0.4 mg 01/03/21 08:10 Nitroglycerin Sl Tabs 0.4 Mg Tab SUBLINGUAL Q5M PRN Chest Pain Ondansetron HCl 4 mg 01/03/21 08:19 Ondansetron 4 Mg/2 Ml Vial IVP Q6HR PRN Nausea And Vomiting 01/03/21 05:22 01/03/21 05:22
[2021-01-03] MEDS ORDERED: ATORVASTATIN 20 MG TAB PO SCH (17:30)
[2021-01-03] MEDS ORDERED: lisinopriL 10 MG TAB PO SCH (17:30)
[2021-01-03 17:31] LABS: Glucose,Whole Blood 105 mg/dL (75-99)
[2021-01-03 18:04] VITALS: RESP 16
[2021-01-03 20:31] LABS: Glucose,Whole Blood 94 mg/dL (75-99)
[2021-01-04] MEDS: SODIUM CHLORIDE 0.9% 1,000 ML IV SCH (04:22)
[2021-01-04 07:08] LABS: Glucose,Whole Blood 91 mg/dL (75-99)
[2021-01-04] MEDS: INSULIN ASPART (NovoLOG) 100 UNIT/ML VIAL SQ SCH ×2 (07:28→13:05)
[2021-01-04 07:58] VITALS: BP 117/80; PULSE 71; TEMP 97.7
[2021-01-04 08:42] LABS: Cholesterol 86 mg/dL (<200); HDL Cholesterol 35 mg/dL (40-60); LDL Cholesterol,Calculated 38 mg/dL (0-99); Lipase 267 U/L (23-300); Triglycerides 65 mg/dL (<150)
[2021-01-04] MEDS ORDERED: ASPIRIN 325 MG TAB PO SCH (09:00)
[2021-01-04] MEDS: HEPARIN SODIUM,PORCINE 5,000 UNIT/ML 1 ML VIAL SQ SCH (09:15)
[2021-01-04 11:21] LABS: Glucose,Whole Blood 105 mg/dL (75-99)
--- NOTE | 2021-01-04 12:44 | P.DS ---
Providers Date of admission: 01/03/21 06:34 Expected date of discharge: 01/04/21 Attending physician: Vidya Garcia Consults: 01/03/21 08:11 Consult Physician Urgent Consulting Provider: Stepan Sánchez Consult Reason/Comments: chest pain r/o? epigastric pain Do you want consulting provider notified?: Yes Primary care physician: Thad Whitaker MD Hospital Course: This is a 55-year-old male with past medical history noted below who presented to the emergency room with sudden onset epigastric and chest discomfort. Patient was evaluated in the ER and placed in observation for further management of his medical problems noted below. 1. Lower chest/epigastric pain, exact etiology unclear. May be acid reflux. ACS ruled out. Twelve-lead EKG showed no acute ischemic changes. Serial troponin negative. Seen and evaluated by cardiology. No cardiac stress testing recommended at this time. Pain was thought to be noncardiac. 2. Mild lipase elevation. Repeat lipase was normal. May be secondary to Rybelsus use. Clinical presentation is not suggestive for acute pancreatitis. Pain resolved quickly after presentation. Patient was able to tolerate regular diet with no difficulty. Lipase elevation only mild and did not exceed 3 times upper range of normal to consider clinical pancreatitis. Ultrasound of the abdomen showed cholelithiasis with no CBD dilation or evidence of acute cholecystitis. Patient was reassured. 3. Type 2 diabetes: Continue home medication 4. Chronic medical problems: Essential hypertension, hyperlipidemia. Continue home medications Patient will be discharged home in a stable condition. For further details about this hospitalization please refer to the electronic chart. Time spent on discharge > 30 minutes including counseling and coordination of care Patient Condition at Discharge: Stable Plan - Discharge Summary New Discharge Prescriptions: Continue Atorvastatin [Lipitor] 20 mg PO AC-SUPPER Dapagliflozin Propanediol [Farxiga] 10 mg PO AC-SUPPER lisinopriL [Zestril] 10 mg PO AC-SUPPER Semaglutide [Rybelsus] 14 mg PO QAM Discharge Medication List Atorvastatin [Lipitor] 20 mg PO AC-SUPPER 01/03/21 [History] Dapagliflozin Propanediol [Farxiga] 10 mg PO AC-SUPPER 01/03/21 [History] Semaglutide [Rybelsus] 14 mg PO QAM 01/03/21 [History] lisinopriL [Zestril] 10 mg PO AC-SUPPER 01/03/21 [History] Follow up Appointment(s)/Referral(s): Thad Whitaker MD [Primary Care Provider] - 1-2 days Discharge Disposition: HOME SELF-CARE
== END 2021-01-04 14:00 | disposition home or self-care (01) ==
LOC: EC 03:19 → 6NMEDSUR 06:34
PROVIDERS: ADMIT Internal Medicine; ATTEND Internal Medicine
DX: R07.89 Other chest pain (principal); R10.13 Epigastric pain; K21.9 Gastro-esophageal reflux disease without esophagitis; R74.8 Abnormal levels of other serum enzymes; E11.9 Type 2 diabetes mellitus without complications; I10 Essential (primary) hypertension; E78.5 Hyperlipidemia, unspecified; R00.0 Tachycardia, unspecified; R11.0 Nausea; R61 Generalized hyperhidrosis; K80.20 Calculus of gallbladder without cholecystitis without obstruction; R09.89 Other specified symptoms and signs involving the circulatory and respiratory systems; M89.48 Other hypertrophic osteoarthropathy, other site; Z79.899 Other long term (current) drug therapy; Z79.84 Long term (current) use of oral hypoglycemic drugs; Z98.890 Other specified postprocedural states; Z20.822 Contact with and (suspected) exposure to COVID-19; Z80.9 Family history of malignant neoplasm, unspecified
CPT/HCPCS: 96361 ×3; 96372 ×3; 96374; 99285; 36415; 85379; 80061; 80053; 82150; 83690 ×2; 83735; 84484; 85025; 85610; 85730; 87635; 71046; 76700; 71275; G0378 ×2; J1644 ×2; J1170; 93005

== ENCOUNTER → 2021-01-22 | Outpatient (CLI) | payer MEDICAID ==
--- NOTE | 2021-01-23 08:08 | NM ---
EXAMINATION TYPE: NM hepatobiliary w EF DATE OF EXAM: 01/22/2021 COMPARISON: Ultrasound 01/03/2021 HISTORY: Cholelithiasis, unspecified abdominal pain TECHNIQUE: After the intravenous administration of 5.1 mCi Tc 99m Mebrofenin hepatobiliary scintigrap hy is performed. Immediate images post injection. FINDINGS: There is satisfactory initial accumulation of tracer by the liver. The gallbladder is thought to be visualized within at 1.5 hours. The small bowel activity is noted within 10 minutes. At one hour 8 ounces of oral ensure plus is given to mimic CCK and gallbladder ejection fraction is calculated at 7 9 %, in the normal range. Therefore there is no scintigraphic evidence of cystic or common bile duct obstruction to suggest acute cholecystitis or gallbladder dyskinesia. IMPRESSION: Delayed visualization of the gallbladder is thought to be present, possible chronic scott cystitis, gallbladder ejection fraction is measured at normal however.
== END | disposition home or self-care (01) ==
LOC: RADNMMAIN 12:55
PROVIDERS: ATTEND Family Medicine
DX: K80.20 Calculus of gallbladder without cholecystitis without obstruction (principal)
CPT/HCPCS: 78226; A9537

== ENCOUNTER → 2023-11-23 | Outpatient (CLI) | payer MEDICAID ==
[2023-11-23 16:01] LABS: ALT 58 U/L (10-49); AST 21 U/L (14-35); Albumin 4.3 g/dL (3.8-4.9); Albumin/Globulin Ratio 2.15 Ratio (1.60-3.17); Alkaline Phosphatase 91 U/L (41-126); BUN/Creat Ratio 15.33 Ratio (12.00-20.00); Blood Urea Nitrogen 13.8 mg/dL (9.0-27.0); Calcium 9.3 mg/dL (8.7-10.3); Carbon Dioxide 25.4 mmol/L (21.6-31.8); Chloride 105 mmol/L (96-109); Chol/HDL Ratio 4.69 Ratio; Glucose 140 mg/dL (70-110); LDL Cholesterol,Calculated 61.6 mg/dL (0.0-131.0); Potassium 4.6 mmol/L (3.5-5.5); Sodium 140 mmol/L (135-145); T4, Free (Free Thyroxine) 1.09 ng/dL (0.80-1.80); Total Bilirubin 0.5 mg/dL (0.3-1.2); Total Protein 6.3 g/dL (6.2-8.2)
[2023-11-23 16:24] LABS: Basophils # (A) 0.03 X 10*3/uL (0.00-0.10); Basophils % (A) 0.5 %; Eosinophils % (A) 3.1 %; HCT 48.4 % (39.6-50.0); HGB 15.9 g/dL (13.0-17.0); Lymphocytes # (A) 2.17 X 10*3/uL (0.90-5.00); Lymphocytes % (A) 33.9 %; MCH 30.7 pg (27.0-32.0); MCHC 32.9 g/dL (32.0-37.0); MCV 93.4 FL (80.0-97.0); Monocytes # (A) 0.52 X 10*3/uL (0.20-1.00); Monocytes % (A) 8.1 %; NRBC Per 100 WBC 0 X 10*3/uL (0.00-0.01); Neutrophils # (A) 3.46 X 10*3/uL (1.80-7.70); Neutrophils % (A) 54.1 %; Platelet Count 292 X 10*3/uL (140-440); RBC 5.18 X 10*6/uL (4.40-5.60); RDW 12.6 % (11.5-14.5)
== END | disposition home or self-care (01) ==
LOC: LABWHC1 10:10
PROVIDERS: ATTEND Nurse Practitioner Family
DX: Z00.00 Encounter for general adult medical examination without abnormal findings (principal); Z13.6 Encounter for screening for cardiovascular disorders
CPT/HCPCS: 36415; 80053; 80061; 82306; 83036; 84153; 84402; 84403; 84439; 84443; 85025

== ENCOUNTER 2024-02-24 07:48 | Observation (INO) | payer MEDICAID ==
[2024-02-24 08:16] LABS: Basophils % (A) 0 %; Eosinophils # (A) 0.2 k/uL (0-0.7); Eosinophils % (A) 2 %; HCT 49.8 % (39.0-53.0); HGB 16.4 gm/dL (13.0-17.5); Lymphocytes % (A) 22 %; MCH 30.6 pg (25.0-35.0); MCV 92.7 fL (80.0-100.0); Mean Platelet Volume 7.8; Monocytes # (A) 0.6 k/uL (0-1.0); Monocytes % (A) 7 %; Neutrophils # (A) 6.2 k/uL (1.3-7.7); Neutrophils % (A) 67 %; Platelet Count 324 k/uL (150-450); RBC 5.38 m/uL (4.30-5.90); RDW 12.7 % (11.5-15.5); WBC 9.3 k/uL (3.8-10.6)
--- NOTE | 2024-02-24 08:23 | ED ---
General Adult HPI - General Chief complaint: Chest Pain Stated complaint: abd pain/chest pain Time Seen by Provider: 02/24/24 07:53 Source: patient, RN notes reviewed, old records reviewed Mode of arrival: ambulatory Limitations: no limitations - History of Present Illness Initial comments: 58-year-old male presenting with lower chest and upper abdominal pain which began approximately 6 hours prior to arrival. No associated vomiting. No diaphoresis. The pain does not radiate. Patient denies prior history of CAD. Denies abdominal surgeries. - Related Data Home Medications Medication Instructions Recorded Confirmed Atorvastatin [Lipitor] 20 mg PO AC-SUPPER 01/03/21 02/24/24 Dapagliflozin Propanediol [Farxiga] 10 mg PO AC-SUPPER 01/03/21 02/24/24 lisinopriL [Zestril] 2.5 mg PO AC-SUPPER 02/24/24 02/24/24 Allergies Allergy/AdvReac Type Severity Reaction Status Date / Time No Known Allergies Allergy Verified 02/24/24 09:00 Review of Systems ROS Statement: Those systems with pertinent positive or pertinent negative responses have been documented in the HPI. ROS Other: All systems not noted in ROS Statement are negative. Past Medical History Past Medical History: Diabetes Mellitus, GERD/Reflux Additional Past Medical History / Comment(s): FEELS LIKE FOOD GETS STUCK IN THROAT History of Any Multi-Drug Resistant Organisms: None Reported Past Surgical History: Adenoidectomy, Tonsillectomy Additional Past Surgical History / Comment(s): EGD 02/17/17 Past Anesthesia/Blood Transfusion Reactions: No Reported Reaction Past Psychological History: No Psychological Hx Reported Smoking Status: Never smoker Past Alcohol Use History: None Reported Past Drug Use History: None Reported - Past Family History Father Family Medical History: Cancer Mother Family Medical History: Cancer Sister(s) Family Medical History: Cancer General Exam Limitations: no limitations General appearance: alert, in no apparent distress Head exam: Present: atraumatic, normocephalic Eye exam: Present: normal appearance, PERRL ENT exam: Present: normal exam Neck exam: Present: normal inspection. Absent: tenderness, meningismus Respiratory exam: Present: normal lung sounds bilaterally. Absent: respiratory distress, wheezes Cardiovascular Exam: Present: regular rate, normal rhythm GI/Abdominal exam: Present: soft, tenderness (epigastric). Absent: distended Extremities exam: Present: normal inspection, normal capillary refill Neurological exam: Present: alert, oriented X3, CN II-XII intact. Absent: motor sensory deficit Psychiatric exam: Present: normal affect, normal mood Skin exam: Present: warm, dry, intact Course Vital Signs 02/24/24 02/24/24 02/24/24 07:49 08:46 09:27 Temperature 97.5 F L Pulse Rate 92 87 89 Respiratory 20 18 18 Rate Blood Pressure 160/91 139/88 145/89 O2 Sat by Pulse 99 98 99 Oximetry 02/24/24 10:00 Temperature Pulse Rate 80 Respiratory 18 Rate Blood Pressure 148/93 O2 Sat by Pulse 97 Oximetry Medical Decision Making - Medical Decision Making Was pt. sent in by a medical professional or institution (, [facility], REINFORCED CONCRETE INSPECTOR, urgent care, hospital, or [facility]...) When possible be specific @ -No Did you speak to anyone other than the patient for history (EMS, parent, family, police, friend...)? What history was obtained from this source @ -No Did you review nursing and triage notes (agree or disagree)? Why? @ -I reviewed and agree with nursing and triage notes Were old charts reviewed (outside hosp., previous admission, EMS record, old EKG, old radiological studies, urgent care reports/EKG's, [facility] records)? Report findings @ -No old charts were reviewed Differential Chest Pain: Stable Angina, Unstable Angina, STEMI, NSTEMI Aortic Dissection, Pneumothorax, Musculoskeletal, Esophageal Spasm GERD, Cholecystitis, Pancreatitis, Zoster, this is not meant to be an all-inclusive list. EKG interpreted by me (3pts min.). @ -Sinus rhythm rate of 97, NV interval 159, QRS duration 94, QTc [address] segment elevation. X-rays interpreted by me (1pt min.). @ -None done CT interpreted by me (1pt min.). @ -None done U/S interpreted by me (1pt. min.). @ -Ultrasound of the gallbladder showing impacted stone with dilated gallbladder. What testing was considered but not performed or refused? (CT, X-rays, U/S, labs)? Why? @ -None What meds were considered but not given or refused? Why? @ -None Did you discuss the management of the patient with other professionals (professionals i.e. , PA, REINFORCED CONCRETE INSPECTOR, lab, RT, psych nurse, social service coordinator, continuous dryout operator, teacher, second officer, oil field caser)? Give summary @ -Discussed with Dr. Frankel who will admit Was smoking cessation discussed for >3mins.? @ -No Was critical care preformed (if so, how long)? @ -No Were there social determinants of health that impacted care today? How? (Homelessness, low income, unemployed, alcoholism, drug addiction, tr ansportation, low edu. Level, literacy, decrease access to med. care, custodial, rehab)? @ -No Was there de-escalation of care discussed even if they declined (Discuss DNR or withdrawal of care, Hospice)? DNR status @ -No What co-morbidities impacted this encounter? (DM, HTN, Smoking, COPD, CAD, Cancer, CVA, ARF, Chemo, Hep., AIDS, mental health diagnosis, sleep apnea, morbid obesity)? @ -Diabetes, hypertension Was patient admitted / discharged? Hospital course, mention meds given and route, prescriptions, significant lab abnormalities, going to OR and other pertinent info. @ -58-year-old male with epigastric pain. Cardiac workup is unremarkable. Patient does have tenderness to both the epigastric region and right upper quadrant. Ultrasound is performed and does show a dilated gallbladder with a stone in the gallbladder neck. Patient continues to have pain despite IV pain medication. He is admitted for symptomatic gallstones and acute cholecystitis. Undiagnosed new problem with uncertain prognosis? @ -No Drug Therapy requiring intensive monitoring for toxicity (Heparin, Nitro, I nsulin, Cardizem)? @ -No Were any procedures done? @ -No Diagnosis/symptom? @ -[Symptomatic gallstone, acute cholecystitis Acute, or Chronic, or Acute on Chronic? @ -Acute Uncomplicated (without systemic symptoms) or Complicated (systemic symptoms)? @ -Default Side effects of treatment? @ -No Exacerbation, Progression, or Severe Exacerbation? @ -No Poses a threat to life or bodily function? How? (Chest pain, [place], [place], pneumonia, PE, COPD, DKA, ARF, appy, cholecystitis, CVA, Diverticulitis, Homicidal, Suicidal, threat to staff... and all critical care pts) @ -Yes, sepsis - Lab Data Result diagrams: 02/24/24 08:10 02/24/24 08:10 Lab Results 02/24/24 02/24/24 02/24/24 Range/Units 08:10 08:10 08:10 WBC 9.3 (3.8-10.6) k/uL RBC 5.38 (4.30-5.90) m/uL Hgb 16.4 (13.0-17.5) gm/dL Hct 49.8 (39.0-53.0) % MCV 92.7 (80.0-100.0) fL MCH 30.6 (25.0-35.0) pg MCHC 33.0 (31.0-37.0) g/dL RDW 12.7 (11.5-15.5) % Plt Count 324 (150-450) k/uL MPV 7.8 Neutrophils % 67 % Lymphocytes % 22 % Monocytes % 7 % Eosinophils % 2 % Basophils % 0 % Neutrophils # 6.2 (1.3-7.7) k/uL Lymphocytes # 2.0 (1.0-4.8) k/uL Monocytes # 0.6 (0-1.0) k/uL Eosinophils # 0.2 (0-0.7) k/uL Basophils # 0.0 (0-0.2) k/uL PT 10.2 (10.0-12.5) sec INR 0.9 (<1.2) APTT 25.3 (22.0-30.0) sec Sodium 138 (137-145) mmol/L Potassium 4.1 (3.5-5.1) mmol/L Chloride 106 (98-107) mmol/L Carbon Dioxide 24 (22-30) mmol/L Anion Gap 8 mmol/L BUN 15 (9-20) mg/dL Creatinine 0.86 (0.66-1.25) mg/dL Est GFR (CKD-EPI)AfAm >90 (>60 ml/min/1.73 sqM) Est GFR (CKD-EPI)NonAf >90 (>60 ml/min/1.73 sqM) Glucose 160 H (74-99) mg/dL Calcium 9.4 (8.4-10.2) mg/dL Magnesium 1.9 (1.6-2.3) mg/dL Total Bilirubin 0.8 (0.2-1.3) mg/dL AST 31 (17-59) U/L ALT 57 H (4-49) U/L Alkaline Phosphatase 106 (38-126) U/L Troponin I (0.000-0.034) ng/mL Total Protein 6.9 (6.3-8.2) g/dL Albumin 4.4 (3.5-5.0) g/dL Lipase 191 (23-300) U/L 02/24/24 Range/Units 08:10 WBC (3.8-10.6) k/uL RBC (4.30-5.90) m/uL Hgb (13.0-17.5) gm/dL Hct (39.0-53.0) % MCV (80.0-100.0) fL MCH (25.0-35.0) pg MCHC (31.0-37.0) g/dL RDW (11.5-15.5) % Plt Count (150-450) k/uL MPV Neutrophils % % Lymphocytes % % Monocytes % % Eosinophils % % Basophils % % Neutrophils # (1.3-7.7) k/uL Lymphocytes # (1.0-4.8) k/uL Monocytes # (0-1.0) k/uL Eosinophils # (0-0.7) k/uL Basophils # (0-0.2) k/uL PT (10.0-12.5) sec INR (<1.2) APTT (22.0-30.0) sec Sodium (137-145) mmol/L Potassium (3.5-5.1) mmol/L Chloride (98-107) mmol/L Carbon Dioxide (22-30) mmol/L Anion Gap mmol/L BUN (9-20) mg/dL Creatinine (0.66-1.25) mg/dL Est GFR (CKD-EPI)AfAm (>60 ml/min/1.73 sqM) Est GFR (CKD-EPI)NonAf (>60 ml/min/1.73 sqM) Glucose (74-99) mg/dL Calcium (8.4-10.2) mg/dL Magnesium (1.6-2.3) mg/dL Total Bilirubin (0.2-1.3) mg/dL AST (17-59) U/L ALT (4-49) U/L Alkaline Phosphatase (38-126) U/L Troponin I <0.012 (0.000-0.034) ng/mL Total Protein (6.3-8.2) g/dL Albumin (3.5-5.0) g/dL Lipase (23-300) U/L Disposition Clinical Impression: Acute cholecystitis Disposition: ADMITTED IP TO THIS HOSP Condition: Stable Is patient prescribed a controlled substance at d/c from ED?: No Referrals: Sharron Shell FNPBC [Family Provider] - 1-2 days Time of Disposition: 11:04
[2024-02-24 08:32] LABS: INR 0.9 (<1.2); Partial Thromboplastin Time 25.3 sec (22.0-30.0); Prothrombin Time 10.2 sec (10.0-12.5)
[2024-02-24 08:36] LABS: ALT 57 U/L (4-49); AST 31 U/L (17-59); African American GFR (CKD) >90 (>60 ml/min/1.73 sqM); Albumin 4.4 g/dL (3.5-5.0); Alkaline Phosphatase 106 U/L (38-126); Anion Gap 8 mmol/L; Blood Urea Nitrogen 15 mg/dL (9-20); Calcium 9.4 mg/dL (8.4-10.2); Carbon Dioxide 24 mmol/L (22-30); Chloride 106 mmol/L (98-107); Glucose 160 mg/dL (74-99); Lipase 191 U/L (23-300); Magnesium 1.9 mg/dL (1.6-2.3); Non-African American GFR(CKD) >90 (>60 ml/min/1.73 sqM); Potassium 4.1 mmol/L (3.5-5.1); Sodium 138 mmol/L (137-145); Total Bilirubin 0.8 mg/dL (0.2-1.3); Total Protein 6.9 g/dL (6.3-8.2)
--- NOTE | 2024-02-24 08:37 | XR ---
EXAMINATION TYPE: XR chest 2V DATE OF EXAM: 02/24/2024 8:16 AM CLINICAL INDICATION:Male, 58 years old with history of Chest Pain; COMPARISON: Chest radiographs from 01/03/2021 TECHNIQUE: XR chest 2V Frontal and lateral views of the chest. FINDINGS: Lungs/Pleura: There is no evidence of pleural effusion, focal consolidation, or pneumothorax. Pulmonary vascularity: Unremarkable. Heart/mediastinum: Cardiomediastinal silhouette is unremarkable. Musculoskeletal: No acute osseous pathology. Other findings: None IMPRESSION: No acute cardiopulmonary disease/process.
[2024-02-24] MEDS: HYDROmorphone 0.5 MG/0.5 ML SYRINGE IVP STA ×3 (09:23→11:13)
[2024-02-24] MEDS: SODIUM CHLORIDE 0.9% 500 ML 500 ML IV ONE (09:26)
--- NOTE | 2024-02-24 09:32 | US ---
EXAMINATION TYPE: US gallbladder DATE OF EXAM: 02/24/2024 COMPARISON: US 2020 CLINICAL INDICATION: Male, 58 years old with history of epigastric pain; Abdomen pain x 1 day, known cholelithiasis TECHNIQUE: Multiple sonographic images of the right upper quadrant are obtained. FINDINGS: EXAM MEASUREMENTS: Liver Length: 15.9 cm Gallbladder Wall: 0.3 cm CBD: 0.4 cm Right Kidney: 9.9 x 5.8 x 5.8 cm Pancreas: obscured by overlying midline bowel gas Liver: No dilated ducts or cystic structures. No solid mass. Gallbladder: hydropic, 1.7cm stone in neck Evidence for sonographic Veloz's sign: yes CBD: visualized portions wnl, limited by overlying bowel gas Right Kidney: wnl IMPRESSION: 1. Dilated gallbladder with Cholelithiasis with gallstone in the gallbladder neck. 2. Hepatic steatosis.
[2024-02-24] MEDS ORDERED: ONDANSETRON 4 MG/2 ML VIAL IVP PRN (10:59)
[2024-02-24] MEDS ORDERED: NALOXONE 0.4 MG/ML 1 ML VIAL IV PRN (10:59)
[2024-02-24] MEDS: SODIUM CHLORIDE 0.9% 1,000 ML IV SCH (11:15)
[2024-02-24] MEDS: PIPERACILLIN-TAZOBACTAM 3.375 GM in SODIUM CHLORIDE 0.9% 100 ML IVPB SCH (11:20)
--- NOTE | 2024-02-24 12:43 | P.GSHP ---
History of Present Illness H&P Date: 02/24/24 CHIEF COMPLAINT: Epigastric pain HISTORY OF PRESENT ILLNESS: This is a 58-year-old male who presents the hospital with complaints of epigastric pain that moved up into the chest. He reports the pain woke him up at 2 AM. He denies any nausea or vomiting. Denies any fever chills or sweats. He reports eating [employer] last night. He also reports similar symptoms about a month ago. Gallbladder ultrasound had reported a dilated gallbladder with gallstones and gallstone in the neck of the gallb ladder. Positive Veloz sign. He denies any cardiac history. Denies any prior abdominal surgeries. PAST MEDICAL HISTORY: Diabetes mellitus PAST SURGICAL HISTORY: See below MEDICATIONS: See below ALLERGIES: See below SOCIAL HISTORY: No illicit drug use. REVIEW OF SYSTEMS: CONSTITUTIONAL: Denies fever or chills. HEENT: Denies blurred vision, vision changes, or eye pain. Denies hemoptysis CARDIOVASCULAR: Denies chest pain or pressure. RESPIRATORY: No shortness of breath. GASTROINTESTINAL: See HPI for pertinent findings HEMATOLOGIC: Denies bleeding disorders. GENITOURINARY: Denies any blood in urine or increased urinary frequency. SKIN: Denies pruitis. Denies rash. PHYSICAL EXAM: VITAL SIGNS: Reviewed GENERAL: Well-developed in no acute distress. HEENT: No sclera icterus. Extraocular movements grossly intact. Moist buccal mucosa. Head is atraumatic, normocephalic. No nasal drainage. ABDOMEN: Soft. Nondistended. Epigastric and right upper quadrant tenderness with palpation NEUROLOGIC: Alert and oriented. Cranial nerves II through XII grossly intact. LABORATORY DATA: WBC 9.3 Hgb 16.4 platelets 324 INR 0.9 Sodium is 138 potassium is 4.1 creatinine 0.86 Lactic acid 1.1 Total bili 0.8 AST 31 ALT 57 alk phos 106 Troponin negative Lipase 191 IMAGING: Chest x-ray no acute cardiopulmonary disease process EKG reports normal sinus rhythm Gallbladder ultrasound reports dilated gallbladder with cholelithiasis with gallstone in the gallbladder neck. Positive Veloz sign. hepatic steatosis ASSESSMENT: 1. Acute cholecystitis with gallbladder ultrasound reporting dilated gallbladder with cholelithiasis and gallstone in the gallbladder neck 2. Mildly elevated ALT PLAN: -Patient scheduled for Laparoscopic cholecystectomy today with Dr. Frankel -Keep patient n.p.o. -Continue IV fluids -continue antibiotics -Continue pain management Physician Desktop Technician note has been reviewed by physician. Signing provider agrees with the documented findings, assessment, and plan of care. I have personally seen and examined the patient, reviewed the MINING TEACHER /PAs history, exam and MDM and agree with the assessment and plan as written. Based on total visit time, I have performed more than 50% of the visit. As above: Patient with right upper quadrant pain and diagnostic studies showing acute cholecystitis with impacted stone. Options reviewed. Will proceed with laparoscopic, possible open cholecystectomy at this time. Risks of bleeding, infection, bile leak, bile duct injury, retained common bile duct stone, trocar injury, conversion to an open procedure, hernia, anesthesia related complications were reviewed. The patient understands and wishes to proceed. Past Medical History Past Medical History: Diabetes Mellitus, GERD/Reflux Additional Past Medical History / Comment(s): FEELS LIKE FOOD GETS STUCK IN THROAT History of Any Multi-Drug Resistant Organisms: None Reported Past Surgical History: Adenoidectomy, Tonsillectomy Additional Past Surgical History / Comment(s): EGD 02/17/17 Past Anesthesia/Blood Transfusion Reactions: No Reported Reaction Past Psychological History: No Psychological Hx Reported Smoking Status: Never smoker Past Alcohol Use History: None Reported Past Drug Use History: None Reported - Past Family History Father Family Medical History: Cancer Mother Family Medical History: Cancer Sister(s) Family Medical History: Cancer Medications and Allergies Home Medications Medication Instructions Recorded Confirmed Type Atorvastatin [Lipitor] 20 mg PO AC-SUPPER 01/03/21 02/24/24 History Dapagliflozin Propanediol [Farxiga] 10 mg PO AC-SUPPER 01/03/21 02/24/24 History lisinopriL [Zestril] 2.5 mg PO AC-SUPPER 02/24/24 02/24/24 History Allergies Allergy/AdvReac Type Severity Reaction Status Date / Time No Known Allergies Allergy Verified 02/24/24 09:00 Surgical - Exam Vital Signs Temp Pulse Resp BP Pulse Ox 97.5 F L 92 20 160/91 99 02/24/24 07:49 02/24/24 07:49 02/24/24 07:49 02/24/24 07:49 02/24/24 07:49 Results - Labs 02/24/24 08:10 02/24/24 08:10 Abnormal Lab Results - Last 24 Hours (Table) 02/24/24 Range/Units 08:10 Glucose 160 H (74-99) mg/dL ALT 57 H (4-49) U/L Diabetes panel 02/24/24 Range/Units 08:10 Sodium 138 (137-145) mmol/L Potassium 4.1 (3.5-5.1) mmol/L Chloride 106 (98-107) mmol/L Carbon Dioxide 24 (22-30) mmol/L BUN 15 (9-20) mg/dL Creatinine 0.86 (0.66-1.25) mg/dL Glucose 160 H (74-99) mg/dL Calcium 9.4 (8.4-10.2) mg/dL AST 31 (17-59) U/L ALT 57 H (4-49) U/L Alkaline Phosphatase 106 (38-126) U/L Total Protein 6.9 (6.3-8.2) g/dL Albumin 4.4 (3.5-5.0) g/dL Calcium panel 02/24/24 Range/Units 08:10 Calcium 9.4 (8.4-10.2) mg/dL Albumin 4.4 (3.5-5.0) g/dL Pituitary panel 02/24/24 Range/Units 08:10 Sodium 138 (137-145) mmol/L Potassium 4.1 (3.5-5.1) mmol/L Chloride 106 (98-107) mmol/L Carbon Dioxide 24 (22-30) mmol/L BUN 15 (9-20) mg/dL Creatinine 0.86 (0.66-1.25) mg/dL Glucose 160 H (74-99) mg/dL Calcium 9.4 (8.4-10.2) mg/dL Adrenal panel 02/24/24 Range/Units 08:10 Sodium 138 (137-145) mmol/L Potassium 4.1 (3.5-5.1) mmol/L Chloride 106 (98-107) mmol/L Carbon Dioxide 24 (22-30) mmol/L BUN 15 (9-20) mg/dL Creatinine 0.86 (0.66-1.25) mg/dL Glucose 160 H (74-99) mg/dL Calcium 9.4 (8.4-10.2) mg/dL Total Bilirubin 0.8 (0.2-1.3) mg/dL AST 31 (17-59) U/L ALT 57 H (4-49) U/L Alkaline Phosphatase 106 (38-126) U/L Total Protein 6.9 (6.3-8.2) g/dL Albumin 4.4 (3.5-5.0) g/dL
[2024-02-24] MEDS: HYDROmorphone 0.5 MG/0.5 ML SYRINGE IVP PRN (16:08)
[2024-02-24] MEDS: DAPAGLIFLOZIN PROPANEDIOL 10 MG TABLET PO ONE (17:39)
[2024-02-24] MEDS: ATORVASTATIN 20 MG TAB PO STA (17:39)
[2024-02-24 22:58] LABS: Glucose,Whole Blood 117 mg/dL (70-110)
[2024-02-25 08:31] LABS: Basophils # (A) 0.04 X 10*3/uL (0.00-0.10); Basophils % (A) 0.4 %; Eosinophils # (A) 0.18 X 10*3/uL (0.04-0.35); Eosinophils % (A) 1.9 %; HCT 44.8 % (39.6-50.0); HGB 14.6 g/dL (13.0-17.0); Lymphocytes # (A) 2.37 X 10*3/uL (0.90-5.00); Lymphocytes % (A) 24.5 %; MCH 30.5 pg (27.0-32.0); MCHC 32.6 g/dL (32.0-37.0); MCV 93.5 FL (80.0-97.0); Mean Platelet Volume 9.8 FL (9.5-12.2); Monocytes # (A) 1.02 X 10*3/uL (0.20-1.00); Monocytes % (A) 10.5 %; NRBC Per 100 WBC 0 X 10*3/uL (0.00-0.01); Neutrophils # (A) 6.06 X 10*3/uL (1.80-7.70); Neutrophils % (A) 62.5 %; Platelet Count 279 X 10*3/uL (140-440); RBC 4.79 X 10*6/uL (4.40-5.60); RDW 12.6 % (11.5-14.5); WBC 9.69 X 10*3/uL (4.50-10.00)
[2024-02-25 08:54] LABS: ALT 45 U/L (10-49); AST 24 U/L (14-35); Albumin 3.9 g/dL (3.8-4.9); Albumin/Globulin Ratio 2.17 Ratio (1.60-3.17); Alkaline Phosphatase 110 U/L (41-126); BUN/Creat Ratio 13.56 Ratio (12.00-20.00); Blood Urea Nitrogen 12.2 mg/dL (9.0-27.0); Calcium 8.7 mg/dL (8.7-10.3); Carbon Dioxide 25.2 mmol/L (21.6-31.8); Chloride 106 mmol/L (96-109); Globulin 1.8 g/dL (1.6-3.3); Glucose 111 mg/dL (70-110); Potassium 4.6 mmol/L (3.5-5.5); Sodium 139 mmol/L (135-145); Total Protein 5.7 g/dL (6.2-8.2)
[2024-02-25] MEDS ORDERED: DEXTROSE 50% SYRINGE 50 ML IVP PRN ×2 (12:18)
[2024-02-25 12:49] LABS: Glucose,Whole Blood 114 mg/dL (70-110)
[2024-02-25] MEDS: INSULIN ASPART (NovoLOG) 100 UNIT/ML VIAL SQ SCH (13:03)
[2024-02-25] MEDS: IV FLUID CONTINUATION 1,000 ML IV ONE (15:29)
[2024-02-25] MEDS: ONDANSETRON 4 MG/2 ML VIAL IVP ONE (15:57)
[2024-02-25] MEDS: DEXAMETHASONE SOD PHOSPHATE 4 MG/ML 1 ML VIAL IVP ONE (15:58)
[2024-02-25] MEDS: HEPARIN SODIUM,PORCINE 5,000 UNIT/ML 1 ML VIAL SQ ONE (15:59)
[2024-02-25 16:00] LABS: Glucose,Whole Blood 104 mg/dL (70-110)
[2024-02-25] MEDS ORDERED: GLYCOPYRROLATE 0.2 MG/ML 2 ML VIAL ONE (16:08)
[2024-02-25] MEDS ORDERED: SUCCINYLCHOLINE CHLORIDE 200 MG/10 ML VIAL IV ONE (16:08)
[2024-02-25] MEDS ORDERED: fentaNYL (PF) 50 MCG/ML 2 ML AMP ONE (16:08)
[2024-02-25] MEDS ORDERED: LIDOCAINE 1% INJ 10MG/ML (20 ML MDV) ONE (16:08)
[2024-02-25] MEDS ORDERED: WATER FOR INJECTION, STERILE 10 ML VIAL IV ONE (16:08)
[2024-02-25] MEDS ORDERED: ROCURONIUM 10 MG/ML (5 ML VIAL) IV ONE (16:08)
[2024-02-25] MEDS ORDERED: VASOPRESSIN 20 UNIT/ML 1 ML VIAL ONE (16:08)
[2024-02-25] MEDS ORDERED: PHENYLEPHRINE 10 MG/ML VIAL ONE (16:08)
[2024-02-25] MEDS ORDERED: MIDAZOLAM 2 MG/2 ML VIAL ONE (16:08)
[2024-02-25] MEDS ORDERED: PROPOFOL 10 MG/ML 20 ML VIAL IV ONE (16:08)
[2024-02-25] MEDS ORDERED: NEOSTIGMINE 1 MG/ML 10 ML VIAL ONE (16:08)
[2024-02-25] MEDS: BUPIVACAINE (PF) 0.25% 30 ML VIAL SQ ONE ×3 (16:28→16:34)
--- NOTE | 2024-02-25 16:56 | P.CONS ---
History of Present Illness - Reason for Consult Consult date: 02/25/24 Medical Management Requesting physician: Delfin Frankel - History of Present Illness History of Presenting Illness: Patient is a pleasant 58-year-old male with a past medical history of hypertension, hyperlipidemia, and type II [id number] diabetes mellitus. He presented to the emergency department on 02/24/2024 with a chief complaint of epigastric pain. On arrival to our facility he underwent evaluation in the emergency department. Vital signs upon arrival show blood pressure 160/91, heart rate 92, respiratory rate 20, temp 97.5 F, and SpO2 of 99% on room air. EKG was completed showing normal sinus rhythm at 97 bpm with no significant T wave or ST abnormalities showing no signs of acute ischemia upon personal review and interpretation. Chest x-ray was negative for acute cardiopulmonary process. Labs were completed and reviewed. CBC unremarkable. Coagulation profile normal findings. BMP unremarkable with exception of elevated glucose of 160. Magnesium 1.9. Liver profile showing elevated ALT of 57 otherwise normal findings. Troponin was negative at less than 0.012. Lipase 191. Gallbladder ultrasound was completed showing dilated gallbladder with cholelithiasis with gallstone in the gallbladder neck and hepatic steatosis. Patient was admitted under general surgery team plans to take patient for laparoscopic cholecystectomy. We were consulted for medical management throughout hospitalization. Patient seen and fully evaluated in room 531. He was awaiting to be taken down for laparoscopic cholecystectomy. Patient reports currently pain is controlled with current pain medication regimen. He denies any nausea or vomiting or any other complaints at this time. Review of systems: Pertinent positives and negatives as discussed in HPI, a complete review of systems was performed and all other systems are negative. Physical exam: Vital signs reviewed and stable. Blood pressure currently 135/77, heart rate 78, respiratory rate 18, temp 97.5 F, and SpO2 of 98% on room air. General: Nontoxic, no distress and appears stated age. Derm: Skin warm and dry, normal coloration for ethnicity. Head: Atraumatic, normocephalic and symmetric. Eyes: EOMs intact, no lid lag, and anicteric sclera Mouth: no lip lesions, mucus membranes moist Cardiovascular: regular rate and rhythm with normal S1S2, no murmur, positive posterior tibial pulses bilaterally, and cap refill < 2 seconds. Lungs: Respirations even, regular, and unlabored on room air. Lungs CTA bilaterally, no rhonchi, no rales, no wheezing, and no accessory muscle usage. Abdominal: soft, nontender to palpation, no guarding, no appreciable organomegaly Ext: ROM intact. No gross muscle atrophy, no edema, no contractures Neuro: Speech clear, face symmetrical and CN II-XII grossly intact with no noted focal neuro deficits Psych: Alert and oriented to person, place, time, and situation. Appropriate and pleasant affect. Assessment and Plan of Care: Acute cholecystitis reports of gallstone in the gallbladder neck Elevated liver enzyme, improving Management per primary admitting general surgery team, patient is scheduled for laparoscopic cholecystectomy. N.p.o., diet to be advanced as recommended by general surgery team. Continue IV fluid hydration with 0.9% normal saline at 75 cc/h. Continue IV antibiotics with Zosyn 3.375 g every 8 hours. Symptomatic care and pain management. Type II [id number] diabetes mellitus with hyperglycemia Hold Farxiga and place patient on glycemic protocol with NovoLog sliding scale to maintain tight glycemic control throughout hospitalization. Hypertension Continue daily medication regimen with lisinopril 2.5 mg daily. Hyperlipidemia Continue daily medication regimen with atorvastatin 20 mg nightly. Data and imaging reviewed: As stated above in HPI Thank you for allowing us to participate in the care of this pleasant patient. Do not hesitate to contact us with questions. Someone can be reached from the [facility] hospitalist group all hours of the day at [phone] or via [email or web address]. Patient was seen independently by Nurse Practitioner. This document was prepared using [employer] dictation software. Please allow for errors in insurance sales manager while rare they do occur. Past Medical History Past Medical History: Diabetes Mellitus, GERD/Reflux, Hyperlipidemia, Hypertension Additional Past Medical History / Comment(s): FEELS LIKE FOOD GETS STUCK IN THROAT History of Any Multi-Drug Resistant Organisms: None Reported Past Surgical History: Adenoidectomy, Tonsillectomy Additional Past Surgical History / Comment(s): EGD 02/17/17 Past Anesthesia/Blood Transfusion Reactions: No Reported Reaction Smoking Status: Former smoker - Past Family History Father Family Medical History: Cancer Mother Family Medical History: Cancer Sister(s) Family Medical History: Cancer Medications and Allergies Home Medications Medication Instructions Recorded Confirmed Type Atorvastatin [Lipitor] 20 mg PO AC-SUPPER 01/03/21 02/24/24 History Dapagliflozin Propanediol [Farxiga] 10 mg PO AC-SUPPER 01/03/21 02/24/24 History lisinopriL [Zestril] 2.5 mg PO AC-SUPPER 02/24/24 02/24/24 History Allergies Allergy/AdvReac Type Severity Reaction Status Date / Time No Known Allergies Allergy Verified 02/24/24 09:00 Physical Exam Vitals: Vital Signs Temp Pulse Pulse Resp BP BP Pulse Ox 02/25/24 07:30 98.0 F 82 17 103/67 94 L 02/25/24 02:00 97.7 F 82 16 122/75 95 02/24/24 23:05 97.9 F 81 16 161/92 97 02/24/24 20:00 84 16 138/78 97 02/24/24 19:09 98.2 F 82 16 140/58 98 02/24/24 17:40 77 20 145/83 96 02/24/24 16:11 74 18 134/90 99 02/24/24 14:08 80 18 120/80 99 Intake and Output 02/24/24 02/25/24 02/25/24 22:59 06:59 14:59 Other: Voiding Method Toilet Toilet # Voids 1 1 Weight 95.254 kg Results CBC & Chem 7: 02/25/24 05:13 02/25/24 05:13 Labs: Abnormal Lab Results - Last 24 Hours (Table) 02/24/24 02/25/24 02/25/24 Range/Units 22:56 05:13 05:13 Monocytes # 1.02 H (0.20-1.00) X 10*3/uL Glucose 111 H (70-110) mg/dL POC Glucose (mg/dL) 117 H (70-110) mg/dL Total Protein 5.7 L (6.2-8.2) g/dL
[2024-02-25] MEDS ORDERED: IBUPROFEN 600 MG TAB PO PRN (17:18)
--- NOTE | 2024-02-25 17:24 | P.OP ---
Date of Procedure: 02/25/24 Procedure(s) Performed: PREOPERATIVE DIAGNOSIS: Acute calculus cholecystitis with hydrops POSTOPERATIVE DIAGNOSIS: Same PROCEDURE: Laparoscopic cholecystectomy SURGEON: Marlys EBL: Minimal see anesthesia record ANESTHESIA: Gen. COMPLICATIONS: None OPERATIVE PROCEDURE: The patient was brought and placed on the operating room table in the supine position. The patient was placed under general anesthesia at that time. The abdomen was prepped and draped in the usual sterile fashion. A small vertical infraumbilical incision was made. The fascia was grasped with the Ton forceps. The fascia was retracted anteriorly. The Veress needle was advanced into the peritoneal cavity. The saline drop test was normal. Insufflation took place up to 15 mmHg. A 5 mm optical trocar was advanced and the peritoneal cavity. 2 additional 5 mm trochars were placed in the right upper quadrant under direct visualization. A 12 mm trocar was advanced into the epigastric incision site. The gallbladder was acutely inflamed. There was significant edema present. Early gangrene changes were seen. The patient's g allbladder was unusual in location and as it was to the left of the falciform ligament. The gallbladder was fairly tense. An opening was made in the fundus and clear fluid was evacuated. The gallbladder was then retracted superiorly and laterally. The peritoneum overlying the infundibulum was bluntly dissected. The patient's cystic duct was visualized. The junction between the cystic duct common and hepatic duct was identified. The critical view of safety was achieved after blunt dissection. The cystic duct was then divided after placement of 3 12 mm clips on the patient's side and one on the specimen side. The cystic artery was identified and clipped as well. A small vessel was seen along the gallbladder fossa and clipped as well. The gallbladder was then removed from the liver bed using electrocautery. The gallbladder was then removed from the epigastric trocar site with an Endo Catch bag. The gallbladder fossa was irrigated with saline. There was no evidence of any bleeding or biliary drainage seen. The fascia at the 12 millimeter site was closed using a Eric-Sonia 0 Vicryl stitch. The trochars were then removed. The skin at all 4 sites was closed using a 4-0 Monocryl stitch. Skin glue was utilized on the incision sites. At the end of this procedure the sponge and needle counts were correct. DISPOSITION: Stable to the recovery room
[2024-02-25 17:46] LABS: Glucose,Whole Blood 115 mg/dL (70-110)
[2024-02-25] MEDS: HYDROmorphone 0.5 MG/0.5 ML SYRINGE IVP ONE (18:11)
[2024-02-25] MEDS: HYDROcodone/APAP 5-325MG 1 EACH TAB PO PRN (18:59)
[2024-02-25] MEDS: ATORVASTATIN 20 MG TAB PO SCH (18:59)
[2024-02-25 19:16] VITALS: RESP 18
[2024-02-26] MEDS: HEPARIN SODIUM,PORCINE 5,000 UNIT/ML 1 ML VIAL SQ SCH (00:03)
[2024-02-26 00:37] LABS: Glucose,Whole Blood 183 mg/dL (70-110)
[2024-02-26 07:56] VITALS: BP 115/71; PULSE 79; TEMP 97.7
[2024-02-26 08:00] LABS: Glucose,Whole Blood 131 mg/dL (70-110)
[2024-02-26] MEDS: INSULIN ASPART (NovoLOG) 100 UNIT/ML VIAL SQ SCH (08:03)
--- NOTE | 2024-02-26 11:07 | P.PN ---
Progress Note - Text Progress Note Date: 02/26/24 POD #1 Laparoscopic Cholecystectomy -Ok for discharge
--- NOTE | 2024-02-26 12:23 | P.PN ---
Subjective Progress Note Date: 02/26/24 Subjective: Patient seen and examined at bedside. No acute events overnight. Passing gas, no bowel movements. Able to tolerate oral intake. Pertinent positives and negatives as discussed above, a complete review of systems was performed and all other systems are negative. Vitals Signs Reviewed. General: Nontoxic, no distress, appears at stated age Derm: Warm, dry, dressing clean, dry, intact Head: Atraumatic, normocephalic, symmetric Eyes: EOMI, no lid lag, anicteric sclera Mouth: No lip lesion, mucus membranes moist Cardiovascular: S1S2 reg, no murmur Lungs: CTA bilateral, no rhonchi, no rales, no accessory muscle use Abdominal: Soft, nontender to palpation, no guarding, no appreciable organomegaly Ext: No gross muscle atrophy, no edema, no contractures Neuro: CN II-XI grossly intact, no focal neuro deficits Psych: Alert, oriented, appropriate affect Data Reviewed Today: Pertinent Labs: Blood sugars range between 1 15-1 83. 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 Hyperlipidemia Continue daily medication regimen with atorvastatin 20 mg nightly. Patient is medically optimized for discharge Thank you for allowing us to participate in the care of this pleasant patient. Do not hesitate to contact us with questions. Someone can be reached from the [facility] hospitalist group all hours of the day at [phone] or via perfect serve. Objective - Vital Signs Vital signs: Vital Signs Temp 97.7 F 02/26/24 07:48 Pulse 79 02/26/24 07:49 Resp 18 02/26/24 07:49 BP 115/71 02/26/24 07:48 Pulse Ox 94 L 02/26/24 07:48 FiO2 Intake & Output 02/25/24 02/26/24 02/26/24 18:59 06:59 18:59 Intake Total 1450 590 Output Total 5 Balance 1445 590 Intake: IV 1450 Oral 590 Output: Estimated Blood Loss 5 Other: Voiding Method Toilet Toilet Toilet # Voids 1 2 - Labs CBC & Chem 7: 02/25/24 05:13 02/25/24 05:13 Labs: Abnormal Lab Results - Last 24 Hours (Table) 02/24/24 02/25/24 02/25/24 Range/Units 08:10 12:48 17:44 POC Glucose (mg/dL) 114 H 115 H (70-110) mg/dL Hemoglobin A1c 7.3 H (<=6.0) % 02/26/24 02/26/24 Range/Units 00:35 07:58 POC Glucose (mg/dL) 183 H 131 H (70-110) mg/dL Hemoglobin A1c (<=6.0) % Microbiology - Last 24 Hours (Table) 02/24/24 11:19 Blood Culture - Preliminary Blood 02/24/24 11:00 Blood Culture - Preliminary Blood
== END 2024-02-26 11:21 | disposition home or self-care (01) ==
LOC: EC 07:48 → 6NMEDSUR 11:01 → 5NMEDONC 19:12
PROVIDERS: ADMIT Surgery; ATTEND Surgery
DX: K80.12 Calculus of gallbladder with acute and chronic cholecystitis without obstruction (principal); K82.1 Hydrops of gallbladder; E11.65 Type 2 diabetes mellitus with hyperglycemia; I10 Essential (primary) hypertension; E78.5 Hyperlipidemia, unspecified; K76.0 Fatty (change of) liver, not elsewhere classified; Z79.84 Long term (current) use of oral hypoglycemic drugs; Z79.899 Other long term (current) drug therapy; Z98.890 Other specified postprocedural states
CPT/HCPCS: 96376 ×2; 96372; 96361; 96374; 99285; 36415; 93005; 88304; 80053 ×2; 83605; 83690; 83735; 84484; 85025 ×2; 85610; 85730; 87040; 83036; 71046; 76705; 47562; G0378 ×4; J2543 ×3; J2250; J0330; J1644 ×2; J1100; J2710; J2405; J2001; J3010; J2704; J1170 ×2; J2371; J0665

== ENCOUNTER → 2024-11-15 | Outpatient (CLI) | payer MEDICAID ==
[2024-11-15 16:56] LABS: Basophils # (A) 0.02 X 10*3/uL (0.00-0.10); Basophils % (A) 0.3 %; Eosinophils # (A) 0.33 X 10*3/uL (0.04-0.35); Eosinophils % (A) 5.6 %; HCT 45.4 % (39.6-50.0); HGB 14.8 g/dL (13.0-17.0); Lymphocytes # (A) 1.91 X 10*3/uL (0.90-5.00); Lymphocytes % (A) 32.4 %; MCHC 32.6 g/dL (32.0-37.0); MCV 92.1 FL (80.0-97.0); Monocytes # (A) 0.48 X 10*3/uL (0.20-1.00); Monocytes % (A) 8.1 %; NRBC Per 100 WBC 0 X 10*3/uL (0.00-0.01); Neutrophils # (A) 3.14 X 10*3/uL (1.80-7.70); Neutrophils % (A) 53.4 %; Platelet Count 284 X 10*3/uL (140-440); RBC 4.93 X 10*6/uL (4.40-5.60); RDW 12.7 % (11.5-14.5); WBC 5.89 X 10*3/uL (4.50-10.00)
[2024-11-15 17:38] LABS: ALT 47 U/L (10-49); AST 23 U/L (14-35); Albumin 3.8 g/dL (3.8-4.9); Albumin/Globulin Ratio 1.81 Ratio (1.60-3.17); Alkaline Phosphatase 86 U/L (41-126); BUN/Creat Ratio 10.78 Ratio (12.00-20.00); Blood Urea Nitrogen 9.7 mg/dL (9.0-27.0); Calcium 8.7 mg/dL (8.7-10.3); Carbon Dioxide 26.3 mmol/L (21.6-31.8); Chloride 105 mmol/L (96-109); Globulin 2.1 g/dL (1.6-3.3); Glucose 166 mg/dL (70-110); LDL Cholesterol,Calculated 56.9 mg/dL (0.0-131.0); Potassium 4.9 mmol/L (3.5-5.5); Sodium 140 mmol/L (135-145); Total Bilirubin 0.4 mg/dL (0.3-1.2); Total Protein 5.9 g/dL (6.2-8.2)
== END | disposition home or self-care (01) ==
LOC: LABWHC1 09:08
PROVIDERS: ATTEND Nurse Practitioner Family
DX: E11.9 Type 2 diabetes mellitus without complications (principal)
CPT/HCPCS: 36415; 80053; 80061; 83036; 85025

== ENCOUNTER → 2025-01-09 | Outpatient (CLI) | payer MEDICAID ==
--- NOTE | 2025-01-09 15:19 | CA ---
Transthoracic Echo Report Name: Jorge Murillo Age: 59 Gender: M : 1965 Exam Date: 01/09/2025 11:30 Exam Location: [place] [facility] Ht (in): 70 Wt (lb): 200 Ordering Physician: Roni Robledo DO Attending/Referring Phys: Jonelle GREGORIO [facility] Senior Living Advisor Kassandra Womack RDCS Procedure CPT: Indications: R06.09 Dyspnea Cardiac Hx: Technical Quality: Fair Contrast 1: Total Dose (mL): Contrast 2: Total Dose (mL): MEASUREMENTS (Male / Female) Normal Values 2D ECHO LV Diastolic Diameter PLAX 4.5 cm 4.2 - 5.9 / 3.9 - 5.3 cm LV Systolic Diameter PLAX 3.0 cm IVS Diastolic Thickness 1.0 cm 0.6 - 1.0 / 0.6 - 0.9 cm LVPW Diastolic Thickness 0.9 cm 0.6 - 1.0 / 0.6 - 0.9 cm LV Relative Wall Thickness 0.4 LVOT Diameter 2.4 cm LV Diastolic Volume MOD BP 84.5 cm??? 67 - 155 / 56 - 104 cm??? LV Systolic Volume MOD BP 31.6 cm??? 22 - 58 / 19 - 49 cm??? LV Ejection Fraction MOD BP 62.6 % >= 55 % LV Cardiac Index MOD BP 1954.6 cm???/min???m??? LV Diastolic Volume MOD 4C 98.2 cm??? LV Systolic Volume MOD 4C 37.2 cm??? LV Ejection Fraction MOD 4C 62.2 % LV Cardiac Index MOD 4C 2256.9 cm???/min???m??? LV Diastolic Length 4C 7.6 cm LV Systolic Length 4C 6.1 cm LV Diastolic Volume MOD 2C 66.1 cm??? LV Systolic Volume MOD 2C 27.0 cm??? LV Ejection Fraction MOD 2C 59.1 % LV Cardiac Index MOD 2C 1443.3 cm???/min???m??? LV Diastolic Length 2C 8.4 cm LV Systolic Length 2C 6.2 cm LA Volume 35.8 cm??? 18 - 58 / 22 - 52 cm??? LA Volume Index 16.8 cm???/m??? 16 - 28 cm???/m??? Ascending Aorta Diameter 3.1 cm DOPPLER AV Peak Velocity 135.2 cm/s AV Peak Gradient 7.3 mmHg AV Mean Velocity 96.5 cm/s AV Mean Gradient 4.1 mmHg AV Velocity Time Integral 27.8 cm LVOT Peak Velocity 100.6 cm/s LVOT Peak Gradient 4.0 mmHg LVOT Velocity Time Integral 20.6 cm LVOT Stroke Volume 93.0 cm??? LVOT Stroke Volume Index 44.5 ml/m??? LVOT Cardiac Index 3437.4 cm???/min???m??? AV Area Cont Eq vti 3.3 cm??? AV Area Cont Eq pk 3.3 cm??? MV Area PHT 4.9 cm??? Mitral E Point Velocity 56.4 cm/s Mitral A Point Velocity 71.2 cm/s Mitral E to A Ratio 0.8 MV Deceleration Time 154.2 ms PV Peak Velocity 109.4 cm/s PV Peak Gradient 4.8 mmHg FINDINGS Left Ventricle Left ventricular ejection fraction is estimated at 60 %. Left ventricular cavity size normal. Left ventricular wall thickness normal. No obvious regional wall motion abnormalities. Right Ventricle Mild right ventricular dilatation. Normal right ventricular global systolic function. Unable to estimate the right ventricular systolic pressure. Right Atrium Normal right atrial size. Left Atrium Normal left atrial size. Mitral Valve Structurally normal mitral valve. No mitral stenosis, regurgitation or prolapse. Aortic Valve Trileaflet aortic valve. No aortic valve stenosis or regurgitation. Tricuspid Valve Structurally normal tricuspid valve. No tricuspid stenosis. Trace tricuspid regurgitation. Pulmonic Valve Pulmonic valve not well visualized. No pulmonic stenosis. No pulmonic regurgitation. Pericardium No pericardial effusion. Aorta Normal size aortic root and proximal ascending aorta. CONCLUSIONS Indication for the procedure dyspnea Normal LV size and function Previewed by: Dr. Elias Rivera MD (Electronically Signed) Final Date: 09 January 2025 15:18
== END | disposition home or self-care (01) ==
LOC: RADECHMAIN 11:27
PROVIDERS: ATTEND Family Medicine
DX: R06.09 Other forms of dyspnea (principal); I07.1 Rheumatic tricuspid insufficiency
CPT/HCPCS: 93306

== ENCOUNTER 2025-05-09 07:15 | Day surgery (SDC) | payer MEDICAID ==
[2025-05-07 08:36] VITALS: BMI 29.4
[~2025-05-09 07:15] MED LIST changes: +LIDOCAINE 1% (10MG/ML) FOR IV START INTRADERMA PRN; -LIDOCAINE 1% 20 ML VIAL (10MG/ML) FOR IV START INTRADERMA PRN; -MIDAZOLAM 2 MG/2 ML VIAL IV PRN; -fentaNYL (PF) 50 MCG/ML 2 ML AMP IV PRN
[2025-05-09] MEDS: IV FLUID CONTINUATION 1,000 ML IV ONE ×2 (07:54→08:44)
[2025-05-09 08:03] VITALS: TEMP 96.9
[2025-05-09] MEDS: LACTATED RINGERS 1,000 ML IV SCH (08:04)
[2025-05-09 08:15] LABS: Glucose,Whole Blood 138 mg/dL (70-110)
[2025-05-09] MEDS ORDERED: PROPOFOL 10 MG/ML 20 ML VIAL IV ONE (08:45)
[2025-05-09] MEDS ORDERED: LIDOCAINE 1% INJ 10MG/ML (20 ML MDV) ONE (08:45)
--- NOTE | 2025-05-09 09:16 | P.PCN ---
Date of Procedure: 05/09/25 Procedure(s) Performed: Brief history: Patient is a pleasant 59-year-old white male scheduled for an elective upper endoscopy as well as colonoscopy as a part of evaluation of dysphagia to solids for the last 2 years duration and screening for colon cancer Procedure performed: Esophagogastroduodenoscopy with biopsy and dilation Colonoscopy Preoperative diagnosis: GERD/intermittent dysphagia to solids Screening for colon cancer Anesthesia: MAC Procedure: After informed consent was obtained from the patient was brought into the endoscopy unit and IV sedation was administered by anesthesia under continuous monitoring. Initially upper endoscopy was done. The Olympus GF 160 video endoscope was inserted inserted into the mouth and esophagus intubated without any difficulty and was gradually advanced into the stomach and duodenum and carefully examined. The bulb and second part of the duodenum appeared normal. The scope was then withdrawn into the stomach adequately insufflated with air and upon careful examination the antrum and body had mild gastritis and biopsies were done from this area. Mucosa of the, cardia and fundus appeared normal. The scope was then withdrawn into the esophagus. The GE junction was located at 40 cm to the incisors. It appeared regular with no erythema erosions or ulcerations. There was a widely patent distal esophageal Schatzki's ring noted which was dilated using 20 mm TTS balloon for 30 seconds. There was slightly distal esophageal fold thickening and biopsies were done to rule out eosinophilic esophagitis. Rest of the esophagus appeared normal patient tolerated the procedure well. At this time the patient continued to remain sedation. Initial digital rectal examination was normal. Olympus CF 160 video colonoscope was then inserted into the rectum and gradually advanced to the cecum without any difficulty. Careful examination was performed as the scope was gradually being withdrawn. The prep was excellent. The cecum, ascending colon, transverse colon, descending colon, sigmoid colon and rectum appeared normal. Scattered sigmoid diverticulosis. Retroflexion was performed in the rectum and no lesions were noted. Patient tolerated the procedure well. Impression: 1. Upper endoscopy revealed distal esophageal Schatzki's ring status post balloon dilation using 20 mm TTS balloon and mild antral gastritis and slightly thickened distal esophageal folds status post biopsy to rule out eosinophilic esophagitis. 2. Colonoscopy revealed scattered sigmoid diverticulosis but no active colorectal neoplasia Recommendations: Findings of this examination were discussed with the patient as well as his family. Follow-up with the biopsy results. To liquids for 2 hours. Recommended repeat screening colonoscopy in 10 years.
[2025-05-09 09:34] VITALS: BP 123/71; PULSE 81; RESP 18
== END 2025-05-09 09:55 | disposition home or self-care (01) ==
LOC: ORWHC2ENDO 07:15
PROVIDERS: ATTEND Internal Medicine Gastroenterology
DX: Z12.11 Encounter for screening for malignant neoplasm of colon (principal); K29.50 Unspecified chronic gastritis without bleeding; K22.2 Esophageal obstruction; K21.00 Gastro-esophageal reflux disease with esophagitis, without bleeding; K22.89 Other specified disease of esophagus; D72.10 Eosinophilia, unspecified; K57.30 Diverticulosis of large intestine without perforation or abscess without bleeding; I10 Essential (primary) hypertension; E11.9 Type 2 diabetes mellitus without complications; E78.5 Hyperlipidemia, unspecified; Z79.84 Long term (current) use of oral hypoglycemic drugs; Z79.899 Other long term (current) drug therapy
CPT/HCPCS: 88305; 45378; 43239; 43249; J2003; J2704; C1726